=== PATIENT | female | born 1975 ===

== ENCOUNTER → 2021-12-23 15:35 | Outpatient (BNVA) | payer OTHER, SELFPAY | PROVIDERS: PCP Internal Medicine; Visit Provider Nurse Practitioner Family | DX: Z13.89 Encounter for screening for other disorder (principal) ==

== ENCOUNTER 2023-07-17 13:42 | Outpatient (AMB) | payer OTHER, SELFPAY ==
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
[2023-07-17 13:46] VITALS: BP 98/58; PULSE 68; RESP 16; O2SAT 96; BMI 22.3
== END 2023-07-17 14:16 | disposition home or self-care (01) ==
PROVIDERS: PCP Internal Medicine; Visit Provider Nurse Practitioner Family
DX: G43.709 Chronic migraine without aura, not intractable, without status migrainosus (principal); M54.2 Cervicalgia
CPT/HCPCS: 99213

== ENCOUNTER → 2023-07-17 13:42 | Outpatient (BNVA) | payer OTHER, SELFPAY | PROVIDERS: PCP Internal Medicine; Visit Provider Nurse Practitioner Family | DX: G43.709 Chronic migraine without aura, not intractable, without status migrainosus (principal); M54.2 Cervicalgia | CPT/HCPCS: 99212 ==

== ENCOUNTER 2023-08-13 09:53 | Outpatient (AMB) | payer OTHER, SELFPAY ==
--- NOTE | 2023-08-13 09:54 | MHC.OFFVIS ---
Intake Vital Signs 08/13/23 09:57 Weight 135 lb BP 118/80 Blood Pressure Location Lt brachial Position Sitting Pulse 82 Pulse Source Pulse Oximeter Pulse Oximetry (%) 98 Oxygen Delivery Method Room Air Intake Visit Reasons: Botox-Confirmed Allergies No Known Allergies Allergy (Verified 08/13/23 09:59) Medication List - Last Reconciled 08/13/23 by Jimena Rodriguez MD onabotulinumtoxinA (Botox) 200 units IM ONCE 90 days riboflavin (vitamin B2) 400 mg PO DAILY 30 days rizatriptan mg PO sumatriptan succinate 0 mg PO HPI HPI Comments History of Present Illness Details ? 47y/o female comes for treatment of migraines with botox. This is her first session she has 25-30 migraine days a month. ??? Most frequent reported adverse reactions following injection of botox for chronic migraine include neck pain (9%), headache(5%), eyelid ptosis(4%), migraine(4%), muscular weakness(4%), musculuskeletal stiffness(4%), bronchitis(3%), injection site pain (3%), musculoskeletal pain(3%), myalgia(3%), facial paresis(2%), HTN(2%) and muscle spasms(2%) were discussed in detail. ??? Botulinum toxin typeA 200units Lot no [id number] expiration November 2025 was diluted with 4 cc of normal saline . ??? Muscles injected- ??? Frontalis 4 sites ??? Procerus 1 site ??? Filling And Stapling Machine Operator- 2 sites ??? Temporalis- 8 sites ??? Occipitalis- 6 sites ??? Cervical paraspinals- 4 sites ??? Trapezius- 6 sites- 10 units each ??? 5 units each in 31 site ??? Total use- 185units ??? Discarded-15units [facility] Medical History Anemia Drug abuse Depression Anxiety Family History Father Diabetes PNA (pneumonia) Mother Diabetes Social History Household Members: None Alcohol intake: current Alcohol intake frequency: holidays/special occasions only Patient Tobacco Use Status: Current everyday Tobacco user Physical Exam Vital Signs: Last Vital Signs Pulse 82 08/13/23 09:57 BP 118/80 08/13/23 09:57 Pulse Ox 98 08/13/23 09:57 Oxygen Delivery Method Room Air 08/13/23 09:57 Const General: cooperative and tired appearing Nutritional Appearance: average body habitus Orientation/consciousness: patient oriented x3 Neck Neck: Yes full ROM and Yes supple Neuro General: patient oriented x3, gait normal and moves all extremities Cranial nerves: Yes CN's II-XII intact bilaterally Cognition (Neuro): normal cognition Gait exam (Neuro): Normal gait present Motor exam (neuro): 5/5 motor strength present throughout, Pronator motor function not present and no tremor noted Office Procedures Botulinum toxin Injection 64430 - Migraine Procedure code (CPT) selection complete Office Meds onabotulinumtoxinA 200 unit solution for injection Performing Provider: Jimena Rodriguez MD Performing Location: [facility] Administered by: Jimena Rodriguez MD on 08/13/23 11:21 Dose Route Admin Location Dispensed Lot Number Expiration Date [facility] [employer] Inspector 185 unit IM 200 units [id number] 11/01/25 1910-9982-55 ALLERGAN/BOTOX Comments: see HPI Assessment & Plan Assessment & Plan (1) Chronic migraine w/o aura w/o status migrainosus, not intractable: Code(s): G43.709 - Chronic migraine without aura, not intractable, without status migrainosus (2) Cervicalgia: Code(s): M54.2 - Cervicalgia Plan Patient tolerated the procedure well she will call with any side effects Orders: Orders AMB Botulinum toxin Injection Today G43.709 - Chronic migraine without aura, not intractable, without status migrainosus Coding Level of Care Code Est Pt Level 1 (57281) Diagnoses Chronic migraine w/o aura w/o status migrainosus, not intractable G43.709 Cervicalgia M54.2 CPT Codes Botox Injection - Botox 3: 54552 - Migraine ([id number])
[2023-08-13 09:57] VITALS: BP 118/80; PULSE 82; O2SAT 98
== END 2023-08-13 10:12 | disposition home or self-care (01) ==
PROVIDERS: PCP Internal Medicine; Visit Provider Psychiatry & Neurology Neurology
DX: G43.709 Chronic migraine without aura, not intractable, without status migrainosus (principal)
CPT/HCPCS: 64615

== ENCOUNTER → 2023-08-13 09:53 | Outpatient (BNVA) | payer OTHER, SELFPAY | PROVIDERS: PCP Internal Medicine; Visit Provider Psychiatry & Neurology Neurology | DX: G43.709 Chronic migraine without aura, not intractable, without status migrainosus (principal); M54.2 Cervicalgia | CPT/HCPCS: 64615; 99211; J0585 ==

== ENCOUNTER 2023-11-12 09:05 | Outpatient (AMB) | payer OTHER, SELFPAY ==
--- NOTE | 2023-11-12 09:07 | A.OFFVIS_ITS ---
Intake Vital Signs 11/12/23 09:09 Height 5 ft 5.5 in Weight 135 lb BMI 22.1 BP 102/60 Blood Pressure Location Lt brachial Position Sitting Respiration 16 Pulse 56 Pulse Source Pulse Oximeter Intake Visit Reasons: Botox-Conf Intake Note: Pt presents to the office for Botox injections. Allergies No Known Allergies Allergy (Verified 11/12/23 09:07) Medication List - Last Reconciled 11/12/23 by Jimena Rodriguez MD onabotulinumtoxinA (Botox) 200 units IM ONCE 90 days riboflavin (vitamin B2) 400 mg PO DAILY 30 days rizatriptan mg PO sumatriptan succinate 0 mg PO HPI HPI Comments History of Present Illness Details ? 47y/o female comes for treatment of migraines with botox. This is her second session. she had a good response after her first session . she had daily migraines 25-30/month and now she has 3/week and less intense and lasts less than 2 hrs . ??? Most frequent reported adverse reactions following injection of botox for chronic migraine include neck pain (9%), headache(5%), eyelid ptosis(4%), migraine(4%), muscular weakness(4%), musculuskeletal stiffness(4%), bronchitis(3%), injection site pain (3%), musculoskeletal pain(3%), myalgia(3%), facial paresis(2%), HTN(2%) and muscle spasms(2%) were discussed in detail. ??? Botulinum toxin typeA 200units Lot no [id number] expiration January 2026 was diluted with 4 cc of normal saline . ??? Muscles injected- ??? Frontalis 4 sites ??? Procerus 1 site ??? Automotive Parts Counter Associate- 2 sites ??? Temporalis- 8 sites ??? Occipitalis- 6 sites ??? Cervical paraspinals- 4 sites ??? Trapezius- 6 sites- 10 units each ??? 5 units each in 31 site ??? Total use- 185units ??? Discarded-15units [facility] Medical History Anemia Drug abuse Depression Anxiety Family History Father Diabetes PNA (pneumonia) Mother Diabetes Social History Household Members: None Alcohol intake: current Alcohol intake frequency: holidays/special occasions only Patient Tobacco Use Status: Current everyday Tobacco user Physical Exam Vital Signs: Last Vital Signs Pulse 56 11/12/23 09:09 Resp 16 11/12/23 09:09 BP 102/60 11/12/23 09:09 BMI result Body Mass Index 22.1 Const General: cooperative and tired appearing Nutritional Appearance: average body habitus Orientation/consciousness: patient oriented x3 Neck Neck: Yes full ROM and Yes supple Neuro General: patient oriented x3, gait normal and moves all extremities Cranial nerves: Yes CN's II-XII intact bilaterally Cognition (Neuro): normal cognition Gait exam (Neuro): Normal gait present Motor exam (neuro): 5/5 motor strength present throughout, Pronator motor function not present and no tremor noted Office Procedures Botulinum toxin Injection 56119 - Migraine Procedure code (CPT) selection complete Office Meds onabotulinumtoxinA 200 unit solution for injection Performing Provider: Jimena Rodriguez MD Performing Location: [facility] [place] [facility] Administered by: Jimena Rodriguez MD on 11/12/23 09:30 Dose Route Admin Location Dispensed Lot Number Expiration Date [facility] [employer] 185 unit IM 200 units [id number] 01/01/26 4474-2263-57 ALLERGAN/BOTOX Comments: see hpi Assessment & Plan Assessment & Plan (1) Chronic migraine w/o aura w/o status migrainosus, not intractable: Code(s): G43.709 - Chronic migraine without aura, not intractable, without status migrainosus (2) Cervicalgia: Code(s): M54.2 - Cervicalgia Plan Patient tolerated the procedure well she will call with any side effects Orders: Orders AMB Botulinum toxin Injection Today G43.709 - Chronic migraine without aura, not intractable, without status migrainosus Medications: New onabotulinumtoxinA 200 units IM ONCE 1 ea 0RF migraine G43.709 - Chronic migraine without aura, not intractable, without status migrainosus Coding Level of Care Code Est Pt Level 1 (94813) Diagnoses Chronic migraine w/o aura w/o status migrainosus, not intractable G43.709 Cervicalgia M54.2 CPT Codes Botox Injection - Botox 3: 21522 - Migraine ([id number])
[2023-11-12 09:09] VITALS: BP 102/60; PULSE 56; RESP 16; BMI 22.1
== END 2023-11-12 09:29 | disposition home or self-care (01) ==
PROVIDERS: PCP Internal Medicine; Visit Provider Psychiatry & Neurology Neurology
DX: G43.709 Chronic migraine without aura, not intractable, without status migrainosus (principal)
CPT/HCPCS: 64615

== ENCOUNTER → 2023-11-12 09:05 | Outpatient (BNVA) | payer OTHER, SELFPAY | PROVIDERS: PCP Internal Medicine; Visit Provider Psychiatry & Neurology Neurology | DX: G43.709 Chronic migraine without aura, not intractable, without status migrainosus (principal) | CPT/HCPCS: 64615; 99211; J0585 ==

== ENCOUNTER 2024-02-16 15:22 | Outpatient (AMB) | payer OTHER, SELFPAY ==
[2024-02-16 15:25] VITALS: BP 92/58; PULSE 68; RESP 16; O2SAT 98; BMI 22.5
--- NOTE | 2024-02-16 15:25 | MHC.OFFVIS ---
Vital Signs 02/16/24 15:25 Height 5 ft 5 in Weight 135 lb BMI 22.5 BP 92/58 L Blood Pressure Location Rt brachial Position Sitting Respiration 16 Pulse 68 Pulse Source Pulse Oximeter Pulse Oximetry (%) 98 Oxygen Delivery Method Room Air Intake Visit Reasons: BOTOX Intake Note: Pt presents to the office for Botox injections for cervicalgia. 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 47y/o female comes for treatment of migraines with botox. This is her second session. she had a good response after her first session . she had daily migraines 25-30/month and now she has 3/week and less intense and lasts less than 2 hrs . ??? Most frequent reported adverse reactions following injection of botox for chronic migraine include neck pain (9%), headache(5%), eyelid ptosis(4%), migraine(4%), muscular weakness(4%), musculuskeletal stiffness(4%), bronchitis(3%), injection site pain (3%), musculoskeletal pain(3%), myalgia(3%), facial paresis(2%), HTN(2%) and muscle spasms(2%) were discussed in detail. ??? Botulinum toxin typeA 200units Lot no [id number] expiration January 2026 was diluted with 4 cc of normal saline . ??? Muscles injected- ??? Frontalis 4 sites ??? Procerus 1 site ??? Oracle Adf Consultant- 2 sites ??? Temporalis- 8 sites ??? Occipitalis- 6 sites ??? Cervical paraspinals- 4 sites ??? Trapezius- 6 sites- 10 units each ??? 5 units each in 31 site ??? Total use- 185units ??? Discarded-15units [facility] Medical History (Updated 02/16/24 @ 15:47 by Jimena Rodriguez MD) Chronic migraine without aura, intractable, without status migrainosus Anemia Drug abuse Depression Anxiety Family History Father Diabetes PNA (pneumonia) Mother Diabetes Social History Household Members: None Alcohol intake: current Alcohol intake frequency: holidays/special occasions only Patient Tobacco Use Status: Current everyday Tobacco user Physical Exam Vital Signs: Last Vital Signs Pulse 68 02/16/24 15:25 Resp 16 02/16/24 15:25 BP 92/58 L 02/16/24 15:25 Pulse Ox 98 02/16/24 15:25 Oxygen Delivery Method Room Air 02/16/24 15:25 BMI result Body Mass Index 22.5 Const General: cooperative and tired appearing Nutritional Appearance: average body habitus Orientation/consciousness: patient oriented x3 Neck Neck: Yes full ROM and Yes supple Neuro General: patient oriented x3, gait normal and moves all extremities Cranial nerves: Yes CN's II-XII intact bilaterally Cognition (Neuro): normal cognition Gait exam (Neuro): Normal gait present Motor exam (neuro): 5/5 motor strength present throughout, Pronator motor function not present and no tremor noted Office Procedures Botulinum toxin Injection 79103 - Migraine Procedure code (CPT) selection complete Office Meds onabotulinumtoxinA 200 unit solution for injection Performing Provider: Jimena Rodriguez MD Performing Location: [facility] [place] [facility] Administered by: Jimena Rodriguez MD on 02/16/24 15:57 Dose Route Admin Location Dispensed Lot Number Expiration Date [facility] Auto Service Writer 185 unit subcut 200 units [id number] 01/01/26 0044-0017-49 ALLERGAN/BOTOX Comments: see HPI Assessment & Plan Assessment & Plan (1) Chronic migraine without aura, intractable, without status migrainosus: Code(s): G43.719 - Chronic migraine without aura, intractable, without status migrainosus Category: Medical Plan Patient tolerated the procedure well she will call with any side effects Orders: Orders AMB Botulinum toxin Injection Today G43.719 - Chronic migraine without aura, intractable, without status migrainosus Medications: New onabotulinumtoxinA 200 units subcut ONCE 1 ea 0RF migraine G43.719 - Chronic migraine without aura, intractable, without status migrainosus Coding Level of Care Code Est Pt Level 1 (09314) Diagnoses Chronic migraine without aura, intractable, without status migrainosus G43.719 CPT Codes Botox Injection - Botox 3: 63787 - Migraine ([id number])
== END 2024-02-16 15:43 | disposition home or self-care (01) ==
PROVIDERS: PCP Internal Medicine; Visit Provider Psychiatry & Neurology Neurology
DX: G43.719 Chronic migraine without aura, intractable, without status migrainosus (principal)
CPT/HCPCS: 64615

== ENCOUNTER → 2024-02-16 15:22 | Outpatient (BNVA) | payer OTHER, SELFPAY | PROVIDERS: PCP Internal Medicine; Visit Provider Psychiatry & Neurology Neurology | DX: G43.719 Chronic migraine without aura, intractable, without status migrainosus (principal) | CPT/HCPCS: 64615; 99211; J0585 ==

== ENCOUNTER 2024-04-05 13:18 | Outpatient (REF) | payer OTHER, SELFPAY ==
--- NOTE | ~2024-04-05 | XR_ITS ---
EXAMINATION: XR WRIST, RIGHT XR WRIST, LEFT CLINICAL INFORMATION: Right and left wrist pain. COMPARISON: None available. TECHNIQUE: AP, oblique, lateral, and scaphoid views of the right and left wrist. FINDINGS: Right Wrist: No acute fracture or dislocation. Borderline ulnar positive variance. No joint space narrowing or marginal osteophytes. No osseous erosion. No abnormal soft tissue calcification. Left Wrist: No acute fracture or dislocation. Borderline ulnar positive variance. No joint space narrowing or marginal osteophytes. No osseous erosion. No abnormal soft tissue calcification. XR/XR wrist LT w scaphoid IMPRESSION: RIGHT WRIST: Borderline ulnar positive variance. No acute osseous abnormality. LEFT WRIST: Borderline ulnar positive variance. No acute osseous abnormality. Electronically signed by: Khoa Guerin MD 04/11/2024 09:27 PM EDT
--- NOTE | ~2024-04-05 | XR_ITS ---
EXAMINATION: XR WRIST, RIGHT XR WRIST, LEFT CLINICAL INFORMATION: Right and left wrist pain. COMPARISON: None available. TECHNIQUE: AP, oblique, lateral, and scaphoid views of the right and left wrist. FINDINGS: Right Wrist: No acute fracture or dislocation. Borderline ulnar positive variance. No joint space narrowing or marginal osteophytes. No osseous erosion. No abnormal soft tissue calcification. Left Wrist: No acute fracture or dislocation. Borderline ulnar positive variance. No joint space narrowing or marginal osteophytes. No osseous erosion. No abnormal soft tissue calcification. XR/XR wrist RT min 3V IMPRESSION: RIGHT WRIST: Borderline ulnar positive variance. No acute osseous abnormality. LEFT WRIST: Borderline ulnar positive variance. No acute osseous abnormality. Electronically signed by: Khoa Guerin MD 04/11/2024 09:27 PM EDT
== END 2024-04-05 13:19 | disposition home or self-care (01) ==
LOC: HO.HOSX 13:18
PROVIDERS: PCP Internal Medicine; Visit Provider Orthopaedic Surgery
DX: M25.532 Pain in left wrist (principal); M25.531 Pain in right wrist; M25.641 Stiffness of right hand, not elsewhere classified; R20.0 Anesthesia of skin; R20.2 Paresthesia of skin
CPT/HCPCS: 73110; 99202

== ENCOUNTER 2024-04-05 14:15 | Outpatient (AMB) | payer OTHER, SELFPAY ==
--- NOTE | 2024-04-05 14:27 | MHC.OFFVIS ---
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 Patient reports numbness and tingling that occurs consonantly. Denies locking of finger. Patient states pain is achy, all the time. She is unsure of what mechanisms make the pain worse. Patient states she's had steroid injections, a few months ago, with minimal relief. Denies any prior injuries or surgeries to the left hand. 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 She reports being a patient of Dr. Ty and Dr. Perdomo at [facility]. She reports that she slipped and fell on some ice back in August of 2022 and has been a patient of theirs for her bilateral wrist pain. She reports that they were trying to order an MRI for 1 of her wrists, but the insurance company denied it and evidently she feels that they did not challenge it. In any case, her chief complaint is of right wrist pain. Mention was made of a TFCC tear. Did not see mention specifically of a TFCC tear in a referral, and had no MRI or MRI report to review. She complains of pain in bilateral wrists, R>L. Her primary complaint is of a constant ache in her right wrist. In questioning her further the chief complaint is actually over the 4th and 5th MCP joints extending proximally along the metacarpals and sometimes up the ulnar aspect of her forearm. She also complains of some radial sided wrist pain which extends from her thumb up the radial aspect of her forearm. She reports limited ROM of her wrist & fingers. She says she has completed OT hand therapy in the past. She also complains of constant numbness & tingling in her right hand that extends from the ulnar aspect of the 5th MCP joint up her ulnar forearm. She has Cervicalgia & complains of neck pain. She is on Methadone. [facility] Medical History (Updated 04/05/24 @ 15:16 by Edwin Astudillo) Chronic migraine without aura, intractable, without status migrainosus Anemia Drug abuse Depression Anxiety Family History Father Diabetes PNA (pneumonia) Mother Diabetes Social History (Updated 04/05/24 @ 14:47 by MATT Rodriguez) Household Members: None Alcohol intake: current Alcohol intake frequency: holidays/special occasions only Patient Tobacco Use Status: Current everyday Tobacco user Current occupational status: employed Current occupation: rt handed Review of Systems Const All systems reviewed & are unremarkable except as noted in HPI and below Physical Exam Vital Signs: BMI result Body Mass Index 22.5 Const General: cooperative, healthy appearing and no acute distress Orientation/consciousness: patient oriented x3 HEENT Head: Yes normocephalic and Yes atraumatic Eyes EOM: EOMs intact bilaterally Resp Effort & Inspection: normal respiratory effort and able to speak in complete sentences Cardio Jugular venous distension: no JVD Skin General skin exam: turgor normal Rashes: no rashes Neuro General: patient oriented x3 Extrem Other: Evaluation of Right Upper Extremity: The patient is, oriented, and in no acute distress. She did act somewhat sleepy or tired during our visit. Initially she was holding her right hand in a position of dysfunction where she would move the arm in space with very little motion at the wrist or any of the fingers. The fingers were held in a position of rest with MCP and PIP flexion. With encouragement I got her to actively extend all of her digits. She was then able to make a weak fist. No subluxation of the extensor tendons. No locking or catching. When I asked her to make an okay sign she would only flex at the MCP joints of the fingers and kept the PIP joints relatively straight, it said that that was all that she could do. Neuro: Median, Ulnar, Radial nerves motor and sensory grossly intact When I asked her about numbness and tingling, she demonstrated that she gets numbness along the ulnar aspect of her hand and forearm extending from the ulnar aspect of the 5th MCP joint proximally to the mid forearm. No intrinsic or thenar wasting. Cap refill brisk General: No swelling, no Ecchymosis. No Erythema or evidence of infection. She can weakly demonstrate wrist flexion extension and prono-supination with encouragement Not particularly tender over the distal radius DRUJ or distal ulna and the DRUJ was stable on exam. Radiographs: 3 views of the bilateral wrists were taken and reviewed by me today in clinic. They show no fractures or dislocations. Regarding the right wrist: No fractures, dislocations, or significant arthritic changes. Regarding the left wrist: No fractures, dislocations, or significant arthritic changes. Psych Appearance: grossly normal Affect: normal affect Attitude: cooperative Assessment & Plan Assessment & Plan (1) Stiffness of right hand joint: Code(s): M25.641 - Stiffness of right hand, not elsewhere classified Category: Medical (2) Stiffness of right wrist joint: Code(s): M25.631 - Stiffness of right wrist, not elsewhere classified Category: Medical (3) Right wrist pain: Code(s): M25.531 - Pain in right wrist Category: Medical (4) Numbness and tingling of right arm: Code(s): R20.0 - Anesthesia of skin; R20.2 - Paresthesia of skin Category: Medical Plan Assessment & Plan: 1. Right chronic hand and wrist pain This is her chief complaint today 2. right hand & wrist motion with significant encouragement I educated her about these conditions I discussed activity modification, she should work on normalizing her right hand range of motion, use her hand for more normal daily activities I ordered OT hand therapy to work on ROM & normalizing function. She can also work on strengthening and normalizing overall use. She will work on ROM exercises at home, 20x daily She will discontinue her wrist brace at this time She will follow up in 6-8 weeks for a ROM check & to see how she is doing I do not see a reason for wrist MRI at this time, but we will re-evaluate her. 3. Right ulnar-sided hand and arm numbness Extending from the ulnar-sided the 5th MCP joint up the ulnar side of the forearm Symptoms intermittent & worse with activities She is unsure if she gets any numbness in her fingers, but perhaps may have occasional numbness in the ulnar aspect of her hand She will pay attention to what goes numb when this occurs, to see if these include any of her fingers She has a Hx of Cervicalgia, which may be related. No available NCS for review I ordered a nerve conduction study. Scribed for Missy Sanchez MD by Edwin Astudillo, director of medical services, on 04/05/24 at 3:15 PM, EST. Orders: Orders XR wrist RT min 3V Today M25.531 - Pain in right wrist XR wrist LT w scaphoid Today M25.532 - Pain in left wrist NE nerve conduction velocity Today R20.0 - Anesthesia of skin, R20.2 - Paresthesia of skin OT Evaluation and Treatment Today M25.531 - Pain in right wrist, M25.631 - Stiffness of right wrist, not elsewhere classified Coding Level of Care Code New Pt Level 4 (06342) Diagnoses Stiffness of right hand joint M25.641 Stiffness of right wrist joint M25.631 Right wrist pain M25.531 Numbness and tingling of right arm R20.0; R20.2
[2024-04-05 14:44] VITALS: BMI 22.5
== END 2024-04-05 15:18 | disposition home or self-care (01) ==
LOC: HO.HOS 14:15
PROVIDERS: PCP Internal Medicine; Visit Provider Orthopaedic Surgery
DX: M25.641 Stiffness of right hand, not elsewhere classified (principal); M25.631 Stiffness of right wrist, not elsewhere classified; M25.531 Pain in right wrist; R20.0 Anesthesia of skin; R20.2 Paresthesia of skin
CPT/HCPCS: 99203

== ENCOUNTER 2024-05-17 09:41 | Outpatient (AMB) | payer OTHER, SELFPAY ==
--- NOTE | 2024-05-17 09:47 | MHC.OFFVIS ---
Vital Signs 05/17/24 09:51 Height 5 ft 5 in Weight 123 lb BMI 20.5 Intake Visit Reasons: Botox - LVM appt was moved to 9:30am Intake Note: Patient presents for botox Allergies No Known Allergies Allergy (Verified 05/17/24 09:52) Medication List - Last Reconciled 05/17/24 by Jimena Rodriguez MD methadone 25 mg PO BID onabotulinumtoxinA (Botox) 200 units IM ONCE 90 days rizatriptan mg PO sumatriptan succinate 0 mg PO HPI Comments Details: ? 48y/o female comes for treatment of migraines with botox. This is her second session. she had a good response after her first session . she had daily migraines 25-30/month and now she has 3/week and less intense and lasts less than 2 hrs .How long do the migraines last- 1-2 days Prebotox - Intensity of migraine- severe prior to botox ER visits related to migraine 1-2 pre botox Effectiveness of botox from last two treatment(s) How many migraine days since receiving treatment: Change? in intensity of migraine?less Change in frequency of migraine?decreased Change in use of acute medication for migraine?decreased Change in quality of life?improved ER visits related to migraine?0 Explanation for any gaps in treatment- Have at least three months elapsed since last treatment (Last botox date - frequency of injections) yes ??? Most frequent reported adverse reactions following injection of botox for chronic migraine include neck pain (9%), headache(5%), eyelid ptosis(4%), migraine(4%), muscular weakness(4%), musculuskeletal stiffness(4%), bronchitis(3%), injection site pain (3%), musculoskeletal pain(3%), myalgia(3%), facial paresis(2%), HTN(2%) and muscle spasms(2%) were discussed in detail. ??? Botulinum toxin typeA 200units Lot no [id number] expiration Jul 2026 was diluted with 4 cc of normal saline . ??? Muscles injected- ??? Frontalis 4 sites ??? Procerus 1 site ??? Financial Examiner- 2 sites ??? Temporalis- 8 sites ??? Occipitalis- 6 sites ??? Cervical paraspinals- 4 sites ??? Trapezius- 6 sites- 10 units each ??? 5 units each in 31 site ??? Total use- 185units ??? Discarded-15units [facility] Medical History Chronic migraine without aura, intractable, without status migrainosus Anemia Drug abuse Depression Anxiety Family History Father Diabetes PNA (pneumonia) Mother Diabetes Social History Household Members: None Alcohol intake: current Alcohol intake frequency: holidays/special occasions only Patient Tobacco Use Status: Current everyday Tobacco user Current occupational status: employed Current occupation: rt handed Physical Exam Vital Signs: BMI result Body Mass Index 20.5 Const General: cooperative and tired appearing Nutritional Appearance: average body habitus Orientation/consciousness: patient oriented x3 Neck Neck: Yes full ROM and Yes supple Neuro General: patient oriented x3, gait normal and moves all extremities Cranial nerves: Yes CN's II-XII intact bilaterally Cognition (Neuro): normal cognition Gait exam (Neuro): Normal gait present Motor exam (neuro): 5/5 motor strength present throughout, Pronator motor function not present and no tremor noted Office Procedures Botulinum toxin Injection 41643 - Migraine Procedure code (CPT) selection complete Office Meds onabotulinumtoxinA 200 unit solution for injection Performing Provider: Jimena Rodriguez MD Performing Location: [facility] [place] [facility] Administered by: Jimena Rodriguez MD on 05/17/24 13:39 Dose Route Admin Location Dispensed Lot Number Expiration Date [facility] [employer] 185 unit subcut 200 units [id number] 07/03/26 2477-5826-72 ALLERGAN/BOTOX Comments: see hpi Assessment & Plan Assessment & Plan (1) Chronic migraine without aura, intractable, without status migrainosus: Code(s): G43.719 - Chronic migraine without aura, intractable, without status migrainosus Category: Medical Plan Patient tolerated the procedure well she will call with any side effects Orders: Orders AMB Botulinum toxin Injection Today G43.719 - Chronic migraine without aura, intractable, without status migrainosus Medications: New onabotulinumtoxinA 200 units subcut ONCE 1 ea 0RF migraine G43.719 - Chronic migraine without aura, intractable, without status migrainosus Coding Level of Care Code Est Pt Level 1 (70154) Diagnoses Chronic migraine without aura, intractable, without status migrainosus G43.719 CPT Codes Botox Injection - Botox 3: 49010 - Migraine ([id number])
[2024-05-17 09:51] VITALS: BMI 20.5
== END 2024-05-17 10:08 | disposition home or self-care (01) ==
PROVIDERS: PCP Internal Medicine; Visit Provider Psychiatry & Neurology Neurology
DX: G43.719 Chronic migraine without aura, intractable, without status migrainosus (principal)
CPT/HCPCS: 64615

== ENCOUNTER → 2024-05-17 09:41 | Outpatient (BNVA) | payer OTHER, SELFPAY | PROVIDERS: PCP Internal Medicine; Visit Provider Psychiatry & Neurology Neurology | DX: G43.719 Chronic migraine without aura, intractable, without status migrainosus (principal) | CPT/HCPCS: 64615; 99211; J0585 ==

== ENCOUNTER 2024-06-29 13:33 | Outpatient (REF) | payer OTHER, SELFPAY ==
--- NOTE | 2024-06-29 13:36 | EMG_ITS ---
Chief complaint: s/p triangular fibrocartilage complex (TFCC) tear, DOI August,, continued right wrist pain with pain and numbness in right thumb and 5th digit, unable to flex wrist Reason for referral: Evaluate for ulnar neuropathy Referred by: Dr. Sanchez Procedure done: Right upper extremity NCS/EMG Precautions and/or limitations: None The limb temperature was monitored continuously and remained between 32-36 degrees C during the performance of the NCS. Nerve Conduction Studies Anti Sensory Summary Table ?Stim Site NR Onset (ms) Norm Onset (ms) Peak (ms) Norm Peak (ms) O-P Amp (?V) Norm O-P Amp Site1 Site2 Delta-0 (ms) Dist (cm) Erick (m/s) Norm Erick (m/s) Right Median Anti Sensory (2nd Digit) Wrist ? 2.3 3.0 <3.6 34.6 >10 Wrist 2nd Digit 2.3 14.0 61 Right Ulnar Anti Sensory (5th Digit) Wrist ? 2.1 3.1 <3.7 25.3 >15.0 Wrist 5th Digit 2.1 14.0 67 Motor Summary Table ?Stim Site NR Onset (ms) Norm Onset (ms) O-P Amp (mV) Norm O-P Amp iAmp (mV) Amp (1st) (%) Site1 Site2 Delta-0 (ms) Dist (cm) Erick (m/s) Norm Erick (m/s) Right Median Motor (Abd Poll Brev) Wrist ? 3.2 <3.9 3.3 >4.5 4.1 100.0 Elbow Wrist 3.9 20.0 51 >45 Elbow ? 7.1 4.4 5.5 133.3 Right Median Motor Run #2 (Abd Poll Brev) Wrist ? 3.2 <3.9 4.3 >4.5 5.2 100.0 Elbow Wrist 4.1 22.0 54 >45 Elbow ? 7.3 3.9 5.0 90.7 Right Ulnar Motor (Abd Dig Minimi) Wrist ? 2.9 <3.0 6.5 >5 7.4 100.0 B Elbow Wrist 3.4 19.0 56 >45 B Elbow ? 6.3 6.2 7.3 95.4 A Elbow B Elbow 1.6 10.0 62 >45 A Elbow ? 7.9 6.2 7.4 95.4 Comparison Summary Table ?Stim Site NR Peak (ms) Norm Peak (ms) P-T Amp (?V) Site1 Site2 Delta-P (ms) Norm Delta (ms) Right Median/Radial Dig I Comparison (Digit 1 - 10cm) Median ? 2.5 <2.9 23.5 Median Radial -0.1 Radial ? 2.6 <2.8 16.0 EMG ?Side Muscle Nerve Root Ins Act Fibs Psw Amp Dur Poly Recrt Int Pat Comment Right 1stDorInt Ulnar C8-T1 Nml Nml Nml Nml Nml 0 Nml Complete Right FlexCarRad Median C6-7 Nml Nml Nml Nml Nml 0 Nml Complete Right Biceps Musculocut C5-6 Nml Nml Nml Nml Nml 0 Nml Complete Right Triceps Radial C6-7-8 Nml Nml Nml Nml Nml 0 Nml Complete Right Deltoid Axillary C5-6 Nml Nml Nml Nml Nml 0 Nml Complete FINDINGS: Right median motor nerve showed normal distal latency, small amplitude and normal conduction velocity. All other nerves tested were within normal. Concentric needle EMG was performed in selected muscles of the right upper extremity. Study did not reveal signs of electric abnormalities as shown in the table above. IMPRESSION: 1. Small distal amplitude on right median motor nerve, of unknown clinical significance. 2. No clear electrodiagnostic evidence for proximal or distal median neuropathy, with normal median sensory. 3. There is no electrodiagnostic evidence for ulnar neuropathy, brachial plexopathy, for cervical radiculopathy. Thank you for your kind referral. Tessa Askew MD, DARRELL Board Certified, [place] Board [employer] and Rehabilitation (ABPMR) Board Certified, [place] Board of Electrodiagnostic Medicine (ABEM) CODIN [id number] [facility]
== END 2024-06-29 13:34 | disposition home or self-care (01) ==
LOC: HO.NEURO 13:33
PROVIDERS: PCP Internal Medicine; Visit Provider Orthopaedic Surgery
DX: R20.0 Anesthesia of skin (principal); R20.2 Paresthesia of skin
CPT/HCPCS: 95886; 95909

== ENCOUNTER → 2024-06-29 13:36 | Outpatient (BNV) | payer OTHER, SELFPAY | PROVIDERS: PCP Internal Medicine; Visit Provider Physical Medicine & Rehabilitation | DX: R20.0 Anesthesia of skin (principal); R20.2 Paresthesia of skin | CPT/HCPCS: 95886; 95909 ==

== ENCOUNTER 2024-08-25 11:32 | Outpatient (AMB) | payer OTHER, SELFPAY ==
--- NOTE | 2024-08-25 11:34 | MHC.OFFVIS ---
Intake Visit Reasons: BOTOX Intake Note: Patient presents for botox Allergies No Known Allergies Allergy (Verified 05/17/24 09:52) HPI Comments Details: ? 48y/o female comes for treatment of migraines with botox. This is her second session. she had a good response after her first session . she had daily migraines 25-30/month and now she has 3/week and less intense and lasts less than 2 hrs .How long do the migraines last- 1-2 days Prebotox - Intensity of migraine- severe prior to botox ER visits related to migraine 1-2 pre botox Effectiveness of botox from last two treatment(s) How many migraine days since receiving treatment: Change? in intensity of migraine?less Change in frequency of migraine?decreased Change in use of acute medication for migraine?decreased Change in quality of life?improved ER visits related to migraine?0 Explanation for any gaps in treatment- Have at least three months elapsed since last treatment (Last botox date - frequency of injections) yes ??? Most frequent reported adverse reactions following injection of botox for chronic migraine include neck pain (9%), headache(5%), eyelid ptosis(4%), migraine(4%), muscular weakness(4%), musculuskeletal stiffness(4%), bronchitis(3%), injection site pain (3%), musculoskeletal pain(3%), myalgia(3%), facial paresis(2%), HTN(2%) and muscle spasms(2%) were discussed in detail. ??? Botulinum toxin typeA 200units Lot no [id number] expiration Jul 2026 was diluted with 4 cc of normal saline . ??? Muscles injected- ??? Frontalis 4 sites ??? Procerus 1 site ??? Roving Changer- 2 sites ??? Temporalis- 8 sites ??? Occipitalis- 6 sites ??? Cervical paraspinals- 4 sites ??? Trapezius- 6 sites- 10 units each ??? 5 units each in 31 site ??? Total use- 185units ??? Discarded-15units [facility] Medical History Chronic migraine without aura, intractable, without status migrainosus Anemia Drug abuse Depression Anxiety Family History Father Diabetes PNA (pneumonia) Mother Diabetes Social History Household Members: None Alcohol intake: current Alcohol intake frequency: holidays/special occasions only Patient Tobacco Use Status: Current everyday Tobacco user Current occupational status: employed Current occupation: rt handed Physical Exam Const General: cooperative and tired appearing Nutritional Appearance: average body habitus Orientation/consciousness: patient oriented x3 Neck Neck: Yes full ROM and Yes supple Neuro General: patient oriented x3, gait normal and moves all extremities Cranial nerves: Yes CN's II-XII intact bilaterally Cognition (Neuro): normal cognition Gait exam (Neuro): Normal gait present Motor exam (neuro): 5/5 motor strength present throughout, Pronator motor function not present and no tremor noted Office Procedures Botulinum toxin Injection 08333 - Migraine Procedure code (CPT) selection complete Office Meds onabotulinumtoxinA 200 unit solution for injection Performing Provider: Jimena Rodriguez MD Performing Location: [facility] [place] [facility] Administered by: Jimena Rodriguez MD on 08/31/24 09:53 Dose Route Admin Location Dispensed Lot Number Expiration Date [facility] [employer] 185 unit IM 200 units [id number] ALLERGAN/BOTOX Comments: see hpi Assessment & Plan Assessment & Plan (1) Chronic migraine without aura, intractable, without status migrainosus: Code(s): G43.719 - Chronic migraine without aura, intractable, without status migrainosus Category: Medical Plan Patient tolerated the procedure well she will call with any side effects Orders: Orders AMB Botulinum toxin Injection 08/25/24 G43.719 - Chronic migraine without aura, intractable, without status migrainosus Medications: New onabotulinumtoxinA 200 units IM ONCE 1 ea 0RF migraine G43.719 - Chronic migraine without aura, intractable, without status migrainosus Coding Level of Care Code Est Pt Level 1 (35204) Diagnoses Chronic migraine without aura, intractable, without status migrainosus G43.719 CPT Codes Botox Injection - Botox 3: 83595 - Migraine ([id number])
--- OUTSIDE RECORDS SUMMARY | 2024-08-25 13:59 | XMS_ITS | Clinical Summary ---
Author Organization [address] [place] [address] [address] [place] [address] Phone Care Team Providers Care Supervisor [employer] Name Role Phone Malick Roca DO Primary Care Provider [phone] Allergies Active Allergy Reactions Criticality Noted Date Comments [place] Oil Anaphylaxis High 05/10/2013 Medications Medication Sig Dispensed Refills Start Date End Date Status methadone (DOLOPHINE) 10 mg/5 mL solution Take 50 mL by mouth every 12 hours. Active rizatriptan (MAXALT) 10 mg tablet as needed. 05/25/2023 Active sertraline (ZOLOFT) 25 mg tablet Take 1 Tablet by mouth daily. Active SUMAtriptan (IMITREX) 100 mg tablet as needed. 05/25/2023 Active Active Problems Problem Noted Date Diagnosed Date Anxiety 05/13/2013 Narcotic addiction 05/13/2013 Surgical History Surgery Date Site/Laterality Comments OTHER SURGICAL HISTORY PROCEDURE: ---- OTHER ----; COMMENT: breast implants Family History Relation Name Status Comments Father Alive Mother Alive Paternal Grandfather Alive cad Social History Tobacco Use Types Packs/Day Years Used Date Smoking Tobacco: Every Day Smokeless Tobacco: Never Alcohol Use Standard Drinks/Week Comments No 0 (1 standard drink = 0.6 oz pur e alcohol) Sex and Gender Information Value Date Recorded Sex Assigned at Not on file Gender Identity Not on file Sexual Orientation Not on file Obstetrics History Plan of Treatment Health Maintenance Due Date Last Done Comments Breast Cancer Screening 1975 Pneumococcal Vaccine: Pediat rics (0 to 5 Years) and At-Risk Patients (6 to 64 Years) (1 of 2 - PCV) 11/30/1981 DTaP,Tdap,and Td Vaccines (1 - Tdap) 11/30/1994 Hepatitis B Vaccines (1 of 3 - 19+ 3-dose series) 11/30/1994 Cervical Cancer Screening: P ap Smear 11/30/1996 Colorectal Cancer Screening: Colonoscopy 07/06/2022 Depression Screening 07/06/2022 HIV Screening 07/06/2022 Hepatitis C Screening 07/06/2022 Social Influencers of Health Screening 07/06/2022 COVID-19 Vaccine (1 - 2023-2 5 season) 2024 Influenza Vaccine (#1) 2024 HIB Vaccines Aged Out No longer eligi ble based on patient's age to complete this topic HPV Vaccines Aged Out No longer eligi ble based on patient's age to complete this topic Hepatitis A Vaccines Aged Out No long er eligible based on patient's age to complete this topic IPV Vaccines Aged Out No longer eligi ble based on patient's age to complete this topic MMR Vaccines Aged Out No longer eligi ble based on patient's age to complete this topic Meningococcal ACWY Vaccine Aged Out N o longer eligible based on patient's age to complete this topic RSV Immunization Patients Un shilpa 20 months Aged Out No longer eligible b ased on patient's age to complete this topic Varicella Vaccines Aged Out No longer eligible based on patient's age to complete this topic Care Teams Supervisor [employer] Relationship Specialty Start Date End Date Malick Roca DO [address] [place] [address] PCP - General 07/03/23
== END 2024-08-25 11:53 | disposition home or self-care (01) ==
PROVIDERS: PCP Internal Medicine; Visit Provider Psychiatry & Neurology Neurology
DX: G43.719 Chronic migraine without aura, intractable, without status migrainosus (principal)
CPT/HCPCS: 64615

== ENCOUNTER → 2024-08-25 11:32 | Outpatient (BNVA) | payer OTHER, SELFPAY | PROVIDERS: PCP Internal Medicine; Visit Provider Psychiatry & Neurology Neurology | DX: G43.719 Chronic migraine without aura, intractable, without status migrainosus (principal) | CPT/HCPCS: 64615; 99211; J0585 ==

== ENCOUNTER 2024-09-23 13:23 | Outpatient (AMB) | payer OTHER, SELFPAY ==
--- NOTE | 2024-09-23 13:32 | A.OFFVIS_ITS ---
Vital Signs 09/23/24 13:35 Height 5 ft 5 in Weight 123 lb BMI 20.5 Intake Visit Reasons: OV- R UE EMG review Intake Note: Hayley is a 48 year old female who presents today for an EMG review of right UE. Patient reports on 09/16/24 she had fallen on ice at home causing her to injure her right wrist and left elbow. States her symptoms have gotten worse and has difficulty sleeping at night. Allergies No Known Allergies Allergy (Verified 09/23/24 13:38) HPI HPI OV- R UE EMG review: Details: Hayley is a 48 year old right hand dominant woman who returns for a NCS review of her RUE numbness. She complains of a new fall onto her right wrist after slipping on ice, DOI: 09/17/24. Her primary complaint is of constant pain in her right hand wrist and forearm. In questioning her Today she demonstrates that the pain runs up her 4th met acarpal across her wrist and then up the dorsal aspect of her forearm. She also complains of some pain along the ulnar aspect of the thumb around the 1st webspace and up the radial aspect of the index finger. She says she has completed OT hand therapy in the past, ordered by [facility]. She has not done her new course of OT hand therapy She also complains of constant numbness & tingling in her right hand that extends from the ulnar aspect of the 5th MCP joint up her ulnar forearm. She complains of cervicalgia and migraines, causing her constant pain & sleepiness. She has CPS. *Please see my note from 04/06/24 for more information* [facility] Medical History Chronic migraine without aura, intractable, without status migrainosus Anemia Drug abuse Depression Anxiety Family History Father Diabetes PNA (pneumonia) Mother Diabetes Social History Household Members: None Alcohol intake: current Alcohol intake frequency: holidays/special occasions only Patient Tobacco Use Status: Current everyday Tobacco user Current occupational status: employed Current occupation: rt handed Review of Systems Const All systems reviewed & are unremarkable except as noted in HPI and below Physical Exam Vital Signs: BMI result Body Mass Index 20.5 Const General: no acute distress and alert Orientation/consciousness: patient oriented x3 Neuro General: patient oriented x3 Extrem Other: Evaluation of Upper Extremity: The patient is alert, oriented, and in no acute distress Neuro: Median, Ulnar, Radial nerves motor and sensory grossly intact When I asked her about numbness and tingling, she demonstrated that she gets numbness along the ulnar aspect of her hand and forearm extending from the ulnar aspect of the 5th MCP joint proximally to the mid forearm. No intrinsic or thenar wasting. Vascular: Cap refill brisk ROM: With encouragement I got her to actively extend all of her digits. She was then able to make a weak fist. No subluxation of the extensor tendons. No locking or catching. With encouragement she could pronate her wrist to ~40 degrees, and supinate to ~65 degrees, limited by pain She demonstrates pain extending from the dorsal aspect of her 4th metacarpal, over the dorsal aspect of her wrist & forearm. She also demonstrates pain around the ulnar aspect of her thumb, around the 1st webspace and extending to the radial aspect of the index finger. She complains of pain with general use of her hand Not particularly tender over the distal radius DRUJ or distal ulna and the DRUJ was stable on exam. Not particularly tender over any of the metacarpals. Good active flexion and extension of all digits with no locking or catching. Smooth wrist range of motion No pain referred proximally with resisted finger or wrist extension. Not particularly tender over the extensor origin just distal to the lateral condyle She firmly squeezed over the mobile wad of wrist extensors and brachioradialis and says that it bothers her to squeeze there. No swelling or erythema Nerve Conduction Study: Right-side only IMPRESSION: 1. Small distal amplitude on right median motor nerve, of unknown clinical significance. 2. No clear electrodiagnostic evidence for proximal or distal median neuropathy, with normal median sensory. 3. There is no electrodiagnostic evidence for ulnar neuropathy, brachial plexopathy, for cervical radiculopathy. Tessa Askew MD, DARRELL 06/29/24 Radiographs: 3 views of the right wrist were taken and viewed by me today in clinic. They show no fractures or dislocations Psych Appearance: grossly normal Affect: normal affect Attitude: cooperative Assessment & Plan Assessment & Plan (1) Stiffness of right hand joint: Code(s): M25.641 - Stiffness of right hand, not elsewhere classified Category: Medical (2) Stiffness of right wrist joint: Code(s): M25.631 - Stiffness of right wrist, not elsewhere classified Category: Medical (3) Right wrist pain: Code(s): M25.531 - Pain in right wrist Category: Medical (4) Numbness and tingling of right arm: Code(s): R20.0 - Anesthesia of skin; R20.2 - Paresthesia of skin Category: Medical Plan Assessment & Plan: 1. Right chronic hand, wrist and forearm pain This is her chief complaint today Exacerbated by new fall, DOI: 09/17/24 2. Right hand & wrist motion improved today I educated her about these conditions I discussed activity modification, she should work on normalizing her right hand range of motion, use her hand for more normal daily activities I ordered OT hand therapy to work on ROM & normalizing function. She can also work on strengthening and normalizing overall use. She will work on ROM exercises at home, 20x daily She will follow up in 6-8 weeks for a ROM check & to see how she is doing I do not see a reason for wrist MRI at this time, but we will re-evaluate her. 3. Right ulnar-sided hand and arm numbness Extending from the ulnar-sided the 5th MCP joint up the ulnar side of the forearm Symptoms intermittent & worse with activities NCS from 06/29/24 was unremarkable She is unsure if she gets any numbness in her fingers, but perhaps may have occasional numbness in the ulnar aspect of her hand She will pay attention to what goes numb when this occurs, to see if these include any of her fingers She has a Hx of Cervicalgia, which may be related. Scribed for Missy Sanchez MD by Edwin Astudillo, clinical specialist medical device, on 09/23/24 at 2:00 PM, EST. Orders: Orders XR wrist RT min 3V Today M25.531 - Pain in right wrist OT Evaluation and Treatment Today M25.531 - Pain in right wrist, M25.631 - Stiffness of right wrist, not elsewhere classified, R20.0 - Anesthesia of skin, R20.2 - Paresthesia of skin Scribe Plan - Not visible on output: Scribed for Imssy Sanchez, MD by Edwin Astudillo, clinical specialist medical device, on [ ] at [ ], EST. Coding Level of Care Code Est Pt Level 4 (25932) Diagnoses Stiffness of right hand joint M25.641 Stiffness of right wrist joint M25.631 Right wrist pain M25.531 Numbness and tingling of right arm R20.0; R20.2
[2024-09-23 13:35] VITALS: BMI 20.5
--- OUTSIDE RECORDS SUMMARY | 2024-09-23 13:47 | XMS_ITS | Clinical Summary ---
Author Organization 175 [facility] Address [address] [place] [address] Phone Care Team Providers Care Metal Miner Blasting Name Role Phone Malick Roca DO Primary Care Provider [phone] Allergies Active Allergy Reactions Criticality Noted Date Comments Chaffee Oil Anaphylaxis High 05/10/2013 Medications methadone (DOLOPHINE) 10 mg/5 mL solution Take 50 mL by mouth every 12 hours. Active rizatriptan (MAXALT) 10 mg tablet as needed. 05/25/2023 Active sertraline (ZOLOFT) 25 mg tablet Take 1 Tablet by mouth daily. Active SUMAtriptan (IMITREX) 100 mg tablet as needed. 05/25/2023 Active Active Problems Problem Noted Date Diagnosed Date Anxiety 05/13/2013 Narcotic addiction 05/13/2013 Encounters Date Type Department Care Team Description 09/08/2024 Lab Requisition [facility] - Main Lab 299 [facility] [place] [address] Jacky Voss Pain in throat from Last 3 Months Surgical History Surgery Date Site/Laterality Comments OTHER SURGICAL HISTORY PROCEDURE: ---- OTHER ----; COMMENT: breast implants Family History Relation Name Status Comments Father Alive Mother Alive Paternal Grandfather Alive cad Social History Tobacco Use Types Packs/Day Years Used Date Smoking Tobacco: Every Day Smokeless Tobacco: Never Alcohol Use Standard Drinks/Week Comments No 0 (1 standard drink = 0.6 oz pur e alcohol) Comments Unknown Sex and Gender Information Value Date Recorded Sex Assigned at Not on file Legal Sex Female 9:02 AM EST Gender Identity Not on file Sexual Orientation Not on file Obstetrics History Plan of Treatment Health Maintenance Due Date Last Done Comments Breast Cancer Screening 1975 Pneumococcal Vaccine: Pediat rics (0 to 5 Years) and At-Risk Patients (6 to 64 Years) (1 of 2 - PCV) 11/30/1994 Cervical Cancer Screening: P ap Smear 11/30/1996 DTaP,Tdap,and Td Vaccines (2 - Td or Tdap) 02/04/2017 02/04/2007 Hepatitis B Vaccines (2 of 3 - 19+ 3-dose series) 02/04/2022 01/07/2022 Colorectal Cancer Screening: Colonoscopy 07/06/2022 Depression Screening 07/06/2022 HIV Screening 07/06/2022 Hepatitis C Screening 07/06/2022 Social Influencers of Health Screening 07/06/2022 COVID-19 Vaccine (2023-2 5 season) 2024 Influenza Vaccine (#1) 2024 Cholesterol Screening (Lipid Panel) 09/08/2029 09/08/2024 HIB Vaccines Aged Out No longer eligi [...] patient's age to complete this topic Meningococcal B Vacine Aged Out No lo nger eligible based on patient's age to complete this topic RSV Immunization Patients Un shilpa 20 months Aged Out No longer eligible b ased on patient's age to complete this topic Varicella Vaccines Aged Out No longer eligible based on patient's age to complete this topic Procedures Procedure Name Priority Date/Time Associated Diagnosis Comments CBC WITH AUTO DIFFERENTIAL Routine 09/08/2024 3:32 PM EST Laboratory tests ordered as part of a complete physical exam (CPE) Iron deficiency Anemia IRON Routine 09/08/2024 3:32 PM EST Laboratory tests ordered as part of a complete physical exam (CPE) Iron deficiency Anemia FERRITIN Routine 09/08/2024 3:32 PM EST Laboratory tests ordered as part of a complete physical exam (CPE) Iron deficiency Anemia HEMOGLOBIN A1C Routine 09/08/2024 3:32 PM EST Laboratory tests ordered as part of a complete physical exam (CPE) Iron deficiency Anemia COMPREHENSIVE METABOLIC PANEL Routine 09/08/2024 3:32 PM EST Laboratory tests ordered as part of a complete physical exam (CPE) Iron deficiency Anemia CBC AND DIFFERENTIAL Routine 09/08/2024 3:32 PM EST Laboratory tests ordered as part of a complete physical exam (CPE) Iron deficiency Anemia THYROID STIMULATING HORMONE Routine 09/08/2024 3:32 PM EST Laboratory tests ordered as part of a complete physical exam (CPE) Iron deficiency Anemia LIPID PANEL WITH REFLEX TO DIRECT LDL Routine 09/08/2024 3:32 PM EST Laboratory tests ordered as part of a complete physical exam (CPE) Iron deficiency Anemia CULTURE THROAT Routine 09/08/2024 12:00 AM EST Pain in throat from Last 3 Months Results * (ABNORMAL) Lipid panel with reflex to direct LDL (09/08/2024 3:32 PM EST) Cholesterol 179 0 - 200 mg/dL LAB CHEMISTRY METHOD 09/08/2024 7:47 PM [facility] Triglycerides 58 0 - 150 mg/dL LAB CHEMISTRY METHOD 09/08/2024 7:47 PM [facility] HDL 65 >=40 mg/dL LAB CHEMISTRY METHOD 09/08/2024 7:47 PM [facility] LDL Calculated 102(H) 0 - 100 mg/dL LAB CHEMISTRY METHOD 09/08/2024 7:47 PM [facility] VLDL Cholesterol Riky 11.6 mg/dL LAB CHEMISTRY METHOD 09/08/2024 7:47 PM EST [facility] Non HDL Chol. (LDL+VLDL) 114 <145 mg/dL LAB CHEMISTRY METHOD 09/08/2024 7:47 PM [facility] Chol/HDL Ratio 2.8 0.0 - 4.4 LAB CHEMISTRY METHOD 09/08/2024 7:47 PM [facility] Blood Venous blood specimen / Unknown Venipuncture / Unknown 09/08/2024 3:32 PM EST 09/08/2024 3:32 PM EST us Jacky Voss LAB BLOOD ORDERABLES Final Resul t [facility] [address] [place] [address], [place] [phone] * (ABNORMAL) CBC auto differential (09/08/2024 3:32 PM EST) WBC 3.3(L) 4.8 - 10.8 K/mcL LAB HEMETOLOGY METHOD 09/08/2024 7:26 PM [facility] RBC 4.40 3.80 - 4.80 M/mcL LAB HEMETOLOGY METHOD 09/08/2024 7:26 PM [facility] Hemoglobin 12.9 11.5 - 16.0 g/dL LAB HEMETOLOGY METHOD 09/08/2024 7:26 PM [facility] Hematocrit 39.8 35.0 - 47.0 % LAB HEMETOLOGY METHOD 09/08/2024 7:26 PM [facility] MCV 89.8 79.0 - 98.0 FL LAB HEMETOLOGY METHOD 09/08/2024 7:26 PM [facility] MCH 29.1 27.0 - 32.0 pcg LAB HEMETOLOGY METHOD 09/08/2024 7:26 PM [facility] MCHC 32.4 32.0 - 37.0 g/dL LAB HEMETOLOGY METHOD 09/08/2024 7:26 PM [facility] RDW 14.3 11.0 - 15.0 % LAB HEMETOLOGY METHOD 09/08/2024 7:26 PM [facility] Platelets 159 130 - 400 K/mcL LAB HEMETOLOGY METHOD 09/08/2024 7:26 PM [facility] MPV 10.7 7.0 - 11.0 FL LAB HEMETOLOGY METHOD 09/08/2024 7:26 PM [facility] NRBC 0.0 <1.0 % LAB HEMETOLOGY METHOD 09/08/2024 7:26 PM [facility] NRBC Absolute 0.00 <0.10 K/mcL LAB HEMETOLOGY METHOD 09/08/2024 7:26 PM [facility] Neutrophils Relative 38.6 % LAB HEMETOLOGY METHOD 09/08/2024 7:26 PM [facility] Lymphocytes Relative 43.7 % LAB HEMETOLOGY METHOD 09/08/2024 7:26 PM [facility] Monocytes Relative 14.7 % LAB HEMETOLOGY METHOD 09/08/2024 7:26 PM [facility] Eosinophils Relative 2.1 % LAB HEMETOLOGY METHOD 09/08/2024 7:26 PM [facility] Basophils Relative 0.6 % LAB HEMETOLOGY METHOD 09/08/2024 7:26 PM [facility] Immature Granulocytes Relative 0.3 % LAB HEMETOLOGY METHOD 09/08/2024 7:26 PM [facility] Neutrophils Absolute 1.29(L) 1.50 - 7.00 K/mcL LAB HEMETOLOGY METHOD 09/08/2024 7:26 PM [facility] Lymphocytes Absolute 1.46 1.00 - 5.00 K/mcL LAB HEMETOLOGY METHOD 09/08/2024 7:26 PM EST [facility] Monocytes Absolute 0.49 0.20 - 1.00 K/[facility] LAB HEMETOLOGY METHOD 09/08/2024 7:26 PM EST [facility] LAB Eosinophils Absolute 0.07 0.00 - 0.50 K/[facility] LAB HEMETOLOGY METHOD 09/08/2024 7:26 PM EST [facility] Basophils Absolute 0.02 0.00 - 0.20 K/[facility] LAB HEMETOLOGY METHOD 09/08/2024 7:26 PM EST [facility] LAB Immature Granulocytes Absolute 0.01 0.00 - 0.03 K/[facility] LAB HEMETOLOGY METHOD 09/08/2024 7:26 PM EST [facility] Blood Venous blood specimen / Unknown Venipuncture / Unknown 09/08/2024 3:32 PM EST 09/08/2024 3:32 PM EST [employer] LAB BLOOD ORDERABLES Final Resul t Performing Organization Address City/[facility]/ZIP Co de Phone Number [facility] [address] [place] [address], [place] [phone] * Thyroid stimulating hormone (09/08/2024 3:32 PM EST) TSH 0.99 0.40 - 4.00 mcIU/mL LAB CHEMISTRY METHOD 09/08/2024 7:55 PM EST [facility] LAB Blood Venous blood specimen / Unknown Venipuncture / Unknown 09/08/2024 3:32 PM EST 09/08/2024 3:32 PM EST [employer] LAB BLOOD ORDERABLES Final Resul t [facility] [address] [place] [address], [place] [phone] * (ABNORMAL) Iron (09/08/2024 3:32 PM EST) Iron 24(L) 40 - 150 mcg/dL LAB CHEMISTRY METHOD 09/08/2024 7:47 PM EST [facility] Blood Venous blood specimen / Unknown Venipuncture / Unknown 09/08/2024 3:32 PM EST 09/08/2024 3:32 PM EST [employer] LAB BLOOD ORDERABLES Final Resul t [facility] [address] [place] [address], [place] [phone] * Hemoglobin A1c (09/08/2024 3:32 PM EST) [facility] Hemoglobin A1C 5.6 <6.5 % LAB CHEMISTRY METHOD 09/08/2024 8:14 PM EST [facility] Mean Bld Glu Estim. 114 mg/dL LAB CHEMISTRY METHOD 09/08/2024 8:14 PM EST [facility] Blood Venous blood specimen / Unknown Venipuncture / Unknown 09/08/2024 3:32 PM EST 09/08/2024 3:32 PM EST Jacky [employer] LAB BLOOD ORDERABLES Final Resul t Performing Organization Address City/[facility]/ZIP Co de Phone Number [facility] [address] [place] [address], [place] [phone] * Ferritin (09/08/2024 3:32 PM EST) Pathologist [facility] Ferritin 32 8 - 252 ng/mL LAB CHEMISTRY METHOD 09/08/2024 7:47 PM EST [facility] Blood Venous blood specimen / Unknown Venipuncture / Unknown 09/08/2024 3:32 PM EST 09/08/2024 3:32 PM EST Jacky Voss LAB BLOOD ORDERABLES Final Resul t [facility] [address] [place] [address], * (ABNORMAL) Comprehensive metabolic panel (09/08/2024 3:32 PM EST) Sodium 138 133 - 145 mmol/L LAB CHEMISTRY METHOD 09/08/2024 7:50 PM EST [facility] Potassium 4.1 3.5 - 5.5 mmol/L LAB CHEMISTRY METHOD 09/08/2024 7:50 PM [facility] Chloride 101 96 - 110 mmol/L LAB CHEMISTRY METHOD 09/08/2024 7:50 PM [facility] CO2 35(H) 21 - 32 mmol/L LAB CHEMISTRY METHOD 09/08/2024 7:50 PM EST [facility] Anion Gap 2(L) 3 - 11 LAB CHEMISTRY METHOD 09/08/2024 7:50 PM EST [facility] Glucose 86 70 - 100 mg/dL LAB CHEMISTRY METHOD 09/08/2024 7:50 PM [facility] BUN 12 5 - 25 mg/dL LAB CHEMISTRY METHOD 09/08/2024 7:50 PM [facility] Creatinine 0.98 0.50 - 1.10 mg/dL LAB CHEMISTRY METHOD 09/08/2024 7:50 PM [facility] eGFR 71 >=60 mL/min/1. 73m2 LAB CHEMISTRY METHOD 09/08/2024 7:50 PM [facility] Comment:Calculation based on the??Chronic Kidney Disease Epidemiology Collaboration (CKD-EPI) equation refit??without adjustment for race. BUN/Creatinine Ratio 12.2 LAB CHEMISTRY METHOD 09/08/2024 7:50 PM [facility] Calcium 9.1 8.5 - 10.5 mg/dL LAB CHEMISTRY METHOD 09/08/2024 7:50 PM [facility] AST (SGOT) 19 10 - 42 unit/L LAB CHEMISTRY METHOD 09/08/2024 7:50 PM [facility] ALT (SGPT) 19 10 - 60 unit/L LAB CHEMISTRY METHOD 09/08/2024 7:50 PM [facility] Alkaline Phosphatase 42 42 - 121 unit/L LAB CHEMISTRY METHOD 09/08/2024 7:50 PM [facility] Total Protein 7.3 6.0 - 8.0 g/dL LAB CHEMISTRY METHOD 09/08/2024 7:50 PM [facility] Albumin 4.0 3.2 - 5.0 g/dL LAB CHEMISTRY METHOD 09/08/2024 7:50 PM [facility] Total Bilirubin 1.0 0.0 - 1.4 mg/dL LAB CHEMISTRY METHOD 09/08/2024 7:50 PM [facility] Blood Venous blood specimen / Unknown Venipuncture / Unknown 09/08/2024 3:32 PM EST 09/08/2024 3:32 PM EST [employer] LAB BLOOD ORDERABLES Final Resul t [facility] [address] [place] [address], [place] [phone] * Culture throat (09/08/2024 12:00 AM EST) Culture, Throat No pathogens isolated. 09/10/2024 10:18 AM EST [facility] Swab Structure of anterior portion of neck / Unknown 09/08/2024 09/08/2024 7:22 PM EST [employer] LAB MICROBIOLOGY - GENERAL ORDER VERNELL Final Result [facility] [address] [place] [address], [place] [phone] from Last 3 Months Insurance [facility] Care Teams Metal Miner Blasting Relationship Specialty Start Date End Date Malick Roca DO [address] [place] [phone] PCP - General 07/03/23
--- OUTSIDE RECORDS SUMMARY | 2024-09-23 13:47 | XMS_ITS | Encounter Summary ---
Author Organization [facility] Address [address] [place] [address] Care Team Providers Care Small Products Ii Assembler Name Role Phone MadonnaMalick concepcion DO Primary Care Provider [phone] Encounter Details Date Type Department Care Team (Late st Contact Info) Description 09/08/2024 Lab Requisition [facility] - Main Lab 299 [facility] [address] Jacky Voss [address] [place] [id number] Pain in throat Social History Tobacco Use Types Packs/Day Years Used Date Smoking Tobacco: Every Day Smokeless Tobacco: Never Alcohol Use Standard Drinks/Week Comments No 0 (1 standard drink = 0.6 oz pur e alcohol) Comments Unknown Sex and Gender Information Value Date Recorded Sex Assigned at Not on file Legal Sex Female 9:02 AM EST Gender Identity Not on file Sexual Orientation Not on file documented as of this encounter Plan of Treatment Not on file documented as of this encounter Procedures Procedure Name Priority Date/Time Associated Diagnosis Comments CULTURE THROAT Routine 09/08/2024 12:00 AM EST Pain in throat documented in this encounter Results * Culture throat (09/08/2024 12:00 AM EST) Culture, Throat No pathogens isolated. 09/10/2024 10:18 AM EST [facility] Swab Structure of anterior portion of neck / Unknown 09/08/2024 09/08/2024 7:22 PM EST us Jacky Voss LAB MICROBIOLOGY - GENERAL ORDER VERNELL Final Result [facility] ([facility]) [facility] [address] [place] [address], [place] [phone] documented in this encounter Visit Diagnoses Diagnosis Pain in throat Throat pain documented in this encounter Care Teams Small Products Ii Assembler Relationship Specialty Start Date End Date Malick Roca DO [address] [place] [phone] PCP - General 07/03/23 documented as of this encounter
== END 2024-09-23 14:20 | disposition home or self-care (01) ==
PROVIDERS: PCP Internal Medicine; Visit Provider Orthopaedic Surgery
DX: M25.641 Stiffness of right hand, not elsewhere classified (principal); M25.631 Stiffness of right wrist, not elsewhere classified; M25.531 Pain in right wrist; R20.0 Anesthesia of skin; R20.2 Paresthesia of skin
CPT/HCPCS: 99213

== ENCOUNTER 2024-09-23 13:23 | Outpatient (REF) | payer OTHER, SELFPAY ==
--- NOTE | ~2024-09-23 | XR_ITS ---
EXAMINATION: XR WRIST 3 OR MORE VIEWS RIGHT HISTORY: M25.531 - Pain in right wrist COMPARISON: Comparison is made with the prior examination dated 04/05/2024. FINDINGS: Three views of the right wrist are submitted. Osseous mineralization is normal. There is no fracture or dislocation. The joint spaces are preserved. The soft tissues are unremarkable. XR/XR wrist RT min 3V IMPRESSION: Unremarkable examination of the right wrist. Electronically signed by: Brian Kaur MD 09/27/2024 08:31 AM MARK
--- OUTSIDE RECORDS SUMMARY | 2024-09-23 14:22 | XMS_ITS | Clinical Summary ---
Author Organization 175 [facility] Address [address] [place] [address] Phone Care Team Providers Care Employment Services Director Name Role Phone Malick Roca DO Primary Care Provider [phone] Allergies Active Allergy Reactions Criticality Noted Date Comments Pearce Oil Anaphylaxis High 05/10/2013 Medications methadone (DOLOPHINE) [...] Department Care Team Description 09/08/2024 Lab Requisition [facility] - Main Lab 299 [facility] [place] [address] Jacky Voss Pain in throat [...] mg/dL LAB CHEMISTRY METHOD 09/08/2024 7:47 PM [facility] Triglycerides 58 0 - 150 mg/dL LAB CHEMISTRY METHOD 09/08/2024 7:47 PM [facility] HDL 65 >=40 mg/dL LAB CHEMISTRY METHOD 09/08/2024 7:47 PM [facility] LDL Calculated 102(H) 0 - 100 mg/dL LAB CHEMISTRY METHOD 09/08/2024 7:47 PM [facility] VLDL Cholesterol Riky 11.6 mg/dL LAB CHEMISTRY METHOD 09/08/2024 7:47 PM EST [facility] Non HDL Chol. (LDL+VLDL) 114 <145 mg/dL LAB CHEMISTRY METHOD 09/08/2024 7:47 PM [facility] Chol/HDL Ratio 2.8 0.0 - 4.4 LAB CHEMISTRY METHOD 09/08/2024 7:47 PM [facility] Blood Venous blood specimen / Unknown Venipuncture / Unknown 09/08/2024 3:32 PM EST 09/08/2024 3:32 PM EST us Jacky Voss LAB BLOOD ORDERABLES Final Resul t [facility] [address] [place] [address], [place] [phone] * (ABNORMAL) CBC auto differential (09/08/2024 3:32 PM EST) WBC 3.3(L) 4.8 - 10.8 K/mcL LAB HEMETOLOGY METHOD 09/08/2024 7:26 PM [facility] RBC 4.40 3.80 - 4.80 M/mcL LAB HEMETOLOGY METHOD 09/08/2024 7:26 PM [facility] Hemoglobin 12.9 11.5 - 16.0 g/dL LAB HEMETOLOGY METHOD 09/08/2024 7:26 PM [facility] Hematocrit 39.8 35.0 - 47.0 % LAB HEMETOLOGY METHOD 09/08/2024 7:26 PM [facility] MCV 89.8 79.0 - 98.0 FL LAB HEMETOLOGY METHOD 09/08/2024 7:26 PM [facility] MCH 29.1 27.0 - 32.0 pcg LAB HEMETOLOGY METHOD 09/08/2024 7:26 PM [facility] MCHC 32.4 32.0 - 37.0 g/dL LAB HEMETOLOGY METHOD 09/08/2024 7:26 PM [facility] RDW 14.3 11.0 - 15.0 % LAB HEMETOLOGY METHOD 09/08/2024 7:26 PM [facility] Platelets 159 130 - 400 K/mcL LAB HEMETOLOGY METHOD 09/08/2024 7:26 PM [facility] MPV 10.7 7.0 - 11.0 FL LAB HEMETOLOGY METHOD 09/08/2024 7:26 PM [facility] NRBC 0.0 <1.0 % LAB HEMETOLOGY METHOD 09/08/2024 7:26 PM [facility] NRBC Absolute 0.00 <0.10 K/mcL LAB HEMETOLOGY METHOD 09/08/2024 7:26 PM [facility] Neutrophils Relative 38.6 % LAB HEMETOLOGY METHOD 09/08/2024 7:26 PM [facility] Lymphocytes Relative 43.7 % LAB HEMETOLOGY METHOD 09/08/2024 7:26 PM [facility] Monocytes Relative 14.7 % LAB HEMETOLOGY METHOD 09/08/2024 7:26 PM [facility] Eosinophils Relative 2.1 % LAB HEMETOLOGY METHOD 09/08/2024 7:26 PM [facility] Basophils Relative 0.6 % LAB HEMETOLOGY METHOD 09/08/2024 7:26 PM [facility] Immature Granulocytes Relative 0.3 % LAB HEMETOLOGY METHOD 09/08/2024 7:26 PM [facility] Neutrophils Absolute 1.29(L) 1.50 - 7.00 K/mcL LAB HEMETOLOGY METHOD 09/08/2024 7:26 PM [facility] Lymphocytes Absolute 1.46 1.00 - 5.00 K/mcL LAB HEMETOLOGY METHOD 09/08/2024 7:26 PM EST [facility] Monocytes Absolute 0.49 0.20 - 1.00 K/[facility] LAB HEMETOLOGY METHOD 09/08/2024 7:26 PM EST [facility] Eosinophils Absolute 0.07 0.00 - 0.50 K/[facility] LAB HEMETOLOGY METHOD 09/08/2024 7:26 PM EST [facility] Basophils Absolute 0.02 0.00 - 0.20 K/[facility] LAB HEMETOLOGY METHOD 09/08/2024 7:26 PM EST [facility] Immature Granulocytes Absolute 0.01 0.00 - 0.03 K/[facility] LAB HEMETOLOGY METHOD 09/08/2024 7:26 PM EST [facility] Blood Venous blood specimen / Unknown Venipuncture / Unknown 09/08/2024 3:32 PM EST 09/08/2024 3:32 PM EST [employer] LAB BLOOD ORDERABLES Final Resul t Performing Organization Address City/[facility]/ZIP Co de Phone Number [facility] [address] [place] [address], [place] [phone] * Thyroid stimulating hormone (09/08/2024 3:32 PM EST) TSH 0.99 0.40 - 4.00 mcIU/mL LAB CHEMISTRY METHOD 09/08/2024 7:55 PM EST [facility] Blood Venous blood specimen / Unknown Venipuncture / Unknown 09/08/2024 3:32 PM EST 09/08/2024 3:32 PM EST [employer] LAB BLOOD ORDERABLES Final Resul t [facility] [address] [place] [address], [place] [phone] * (ABNORMAL) Iron (09/08/2024 3:32 PM EST) Iron 24(L) 40 - 150 mcg/dL LAB CHEMISTRY METHOD 09/08/2024 7:47 PM EST [facility] Blood Venous blood specimen / Unknown Venipuncture / Unknown 09/08/2024 3:32 PM EST 09/08/2024 3:32 PM EST [employer] LAB BLOOD ORDERABLES Final Resul t [facility] [address] [place] [address], [place] [phone] * Hemoglobin A1c (09/08/2024 3:32 PM EST) [facility] Hemoglobin A1C 5.6 <6.5 % LAB CHEMISTRY METHOD 09/08/2024 8:14 PM EST [facility] Mean Bld Glu Estim. 114 mg/dL LAB CHEMISTRY METHOD 09/08/2024 8:14 PM EST [facility] Blood Venous blood specimen / Unknown Venipuncture / Unknown 09/08/2024 3:32 PM EST 09/08/2024 3:32 PM EST [employer] LAB BLOOD ORDERABLES Final Resul t Performing Organization Address City/[facility]/ZIP Co de Phone Number [facility] [address] [place] [address], [place] [phone] * Ferritin (09/08/2024 3:32 PM EST) Pathologist [facility] Ferritin 32 8 - 252 ng/mL LAB CHEMISTRY METHOD 09/08/2024 7:47 PM EST [facility] Blood Venous blood specimen / Unknown Venipuncture / Unknown 09/08/2024 3:32 PM EST 09/08/2024 3:32 PM EST Jacky Voss LAB BLOOD ORDERABLES Final Resul t [facility] [address] [place] [address], * (ABNORMAL) Comprehensive metabolic panel (09/08/2024 3:32 PM EST) Sodium 138 133 - 145 mmol/L LAB CHEMISTRY METHOD 09/08/2024 7:50 PM EST [facility] Potassium 4.1 3.5 - 5.5 mmol/L LAB CHEMISTRY METHOD 09/08/2024 7:50 PM [facility] Chloride 101 96 - 110 mmol/L LAB CHEMISTRY METHOD 09/08/2024 7:50 PM [facility] CO2 35(H) 21 - 32 mmol/L LAB CHEMISTRY METHOD 09/08/2024 7:50 PM EST [facility] Anion Gap 2(L) 3 - 11 LAB CHEMISTRY METHOD 09/08/2024 7:50 PM EST [facility] Glucose 86 70 - 100 mg/dL LAB CHEMISTRY METHOD 09/08/2024 7:50 PM [facility] BUN 12 5 - 25 mg/dL LAB CHEMISTRY METHOD 09/08/2024 7:50 PM [facility] Creatinine 0.98 0.50 - 1.10 mg/dL LAB CHEMISTRY METHOD 09/08/2024 7:50 PM [facility] eGFR 71 >=60 mL/min/1. 73m2 LAB CHEMISTRY METHOD 09/08/2024 7:50 PM [facility] Comment:Calculation based on the??Chronic Kidney Disease Epidemiology Collaboration (CKD-EPI) equation refit??without adjustment for race. BUN/Creatinine Ratio 12.2 LAB CHEMISTRY METHOD 09/08/2024 7:50 PM [facility] Calcium 9.1 8.5 - 10.5 mg/dL LAB CHEMISTRY METHOD 09/08/2024 7:50 PM [facility] AST (SGOT) 19 10 - 42 unit/L LAB CHEMISTRY METHOD 09/08/2024 7:50 PM [facility] ALT (SGPT) 19 10 - 60 unit/L LAB CHEMISTRY METHOD 09/08/2024 7:50 PM [facility] Alkaline Phosphatase 42 42 - 121 unit/L LAB CHEMISTRY METHOD 09/08/2024 7:50 PM [facility] Total Protein 7.3 6.0 - 8.0 g/dL LAB CHEMISTRY METHOD 09/08/2024 7:50 PM [facility] Albumin 4.0 3.2 - 5.0 g/dL LAB CHEMISTRY METHOD 09/08/2024 7:50 PM [facility] Total Bilirubin 1.0 0.0 - 1.4 mg/dL LAB CHEMISTRY METHOD 09/08/2024 7:50 PM [facility] Blood Venous blood specimen / Unknown Venipuncture / Unknown 09/08/2024 3:32 PM EST 09/08/2024 3:32 PM EST [employer] LAB BLOOD ORDERABLES Final Resul t [facility] [address] [place] [address], [place] [phone] * Culture throat (09/08/2024 12:00 AM EST) Culture, Throat No pathogens isolated. 09/10/2024 10:18 AM EST [facility] Swab Structure of anterior portion of neck / Unknown 09/08/2024 09/08/2024 7:22 PM EST [employer] LAB MICROBIOLOGY - GENERAL ORDER VERNELL Final Result [facility] [address] [place] [address], [place] [phone] from Last 3 Months Insurance [facility] [employer] Care Teams Employment Services Director Relationship Specialty Start Date End Date Malick Roca DO [address] [place] [phone] PCP - General 07/03/23
--- OUTSIDE RECORDS SUMMARY | 2024-09-23 14:22 | XMS_ITS | Encounter Summary ---
Author Organization [facility] Address [address] [place] [address] Care Team Providers Care Project Structural Engineer Name Role Phone MadonnaMalick concepcion DO Primary Care Provider [phone] Encounter Details Date Type Department Care Team (Late st Contact Info) Description 09/08/2024 Lab Requisition [facility] - Main Lab [address] [facility] [place] [address] Jacky Voss [address] [place] [phone] Pain in throat Social History Tobacco Use [...] No pathogens isolated. 09/10/2024 10:18 AM EST [facility] ([facility]) [facility] Swab Structure of anterior portion of neck / Unknown 09/08/2024 09/08/2024 7:22 PM EST us Jacky Voss LAB MICROBIOLOGY - GENERAL ORDER VERNELL Final Result [facility] ([facility]) [facility] [address] [place] [address], [place] [phone] documented in this encounter Visit Diagnoses Diagnosis Pain in throat Throat pain documented in this encounter Care Teams Project Structural Engineer Relationship Specialty Start Date End Date Malick Roca DO [address] [place] [phone] PCP - General 07/03/23 documented as of this encounter
== END 2024-09-23 13:24 | disposition home or self-care (01) ==
LOC: HO.HOSX 13:23
PROVIDERS: PCP Internal Medicine; Visit Provider Orthopaedic Surgery
DX: M25.531 Pain in right wrist (principal); M25.641 Stiffness of right hand, not elsewhere classified; M25.631 Stiffness of right wrist, not elsewhere classified; R20.0 Anesthesia of skin; R20.2 Paresthesia of skin
CPT/HCPCS: 73110; 99212

== ENCOUNTER → 2024-09-23 14:05 | Outpatient (BNV) | payer OTHER, SELFPAY | PROVIDERS: PCP Internal Medicine; Visit Provider Radiology Diagnostic Radiology | DX: M25.531 Pain in right wrist (principal) | CPT/HCPCS: 73110 ==

== ENCOUNTER 2024-12-13 13:23 | Outpatient (AMB) | payer OTHER, SELFPAY ==
[2024-12-13 13:25] VITALS: BP 98/72; BMI 20.5
--- NOTE | 2024-12-13 13:25 | MHC.OFFVIS ---
Vital Signs 12/13/24 13:25 Height 5 ft 5 in Weight 123 lb BMI 20.5 BP 98/72 Blood Pressure Location Rt brachial Position Sitting Intake Visit Reasons: Botox-LVM Intake Note: patient presents for botox injection. pharmacy supplied Allergies No Known Allergies Allergy (Verified 12/13/24 13:27) Medication List - Last Reconciled 12/13/24 by Jimena Rodriguez MD methadone 25 mg PO BID onabotulinumtoxinA (Botox) 200 units IM ONCE 90 days rizatriptan mg PO sumatriptan succinate 0 mg PO HPI Comments Details: ? 49y/o female comes for treatment of migraines with botox. This is her second session. she had a good response after her first session . she had daily migraines 25-30/month and now she has 3/week and less intense and lasts less than 2 hrs .How long do the migraines last- 1-2 days Prebotox - Intensity of migraine- severe prior to botox ER visits related to migraine 1-2 pre botox Effectiveness of botox from last two treatment(s) How many migraine days since receiving treatment: Change? in intensity of migraine?less Change in frequency of migraine?decreased Change in use of acute medication for migraine?decreased Change in quality of life?improved ER visits related to migraine?0 Explanation for any gaps in treatment- Have at least three months elapsed since last treatment (Last botox date - frequency of injections) yes ??? Most frequent reported adverse reactions following injection of botox for chronic migraine include neck pain (9%), headache(5%), eyelid ptosis(4%), migraine(4%), muscular weakness(4%), musculuskeletal stiffness(4%), bronchitis(3%), injection site pain (3%), musculoskeletal pain(3%), myalgia(3%), facial paresis(2%), HTN(2%) and muscle spasms(2%) were discussed in detail. ??? Botulinum toxin typeA 200units Lot no [id number] November 2026 was diluted with 4 cc of normal saline . ??? Muscles injected- ??? Frontalis 4 sites ??? Procerus 1 site ??? Tombstone Erector Helper- 2 sites ??? Temporalis- 8 sites ??? Occipitalis- 6 sites ??? Cervical paraspinals- 4 sites ??? Trapezius- 6 sites- 10 units each ??? 5 units each in 31 site ??? Total use- 185units ??? Discarded-15units PFSH Medical History Chronic migraine without aura, intractable, without status migrainosus Anemia Drug abuse Depression Anxiety Family History Father Diabetes PNA (pneumonia) Mother Diabetes Social History Household Members: None Alcohol intake: current Alcohol intake frequency: holidays/special occasions only Patient Tobacco Use Status: Current everyday Tobacco user Current occupational status: employed Current occupation: rt handed Physical Exam Vital Signs: Last Vital Signs BP 98/72 12/13/24 13:25 BMI result Body Mass Index 20.5 Const General: cooperative and tired appearing Nutritional Appearance: average body habitus Orientation/consciousness: patient oriented x3 Neck Neck: Yes full ROM and Yes supple Neuro General: patient oriented x3, gait normal and moves all extremities Cranial nerves: Yes CN's II-XII intact bilaterally Cognition (Neuro): normal cognition Gait exam (Neuro): Normal gait present Motor exam (neuro): 5/5 motor strength present throughout, Pronator motor function not present and no tremor noted Office Procedures Botulinum toxin Injection 00521 - Migraine Procedure code (CPT) selection complete Office Meds onabotulinumtoxinA 200 unit solution for injection Performing Provider: Jimena Rodriguez MD Performing Location: [facility] Administered by: Jimena Rodriguez MD on 12/13/24 13:58 Dose Route Admin Location Dispensed Lot Number Expiration Date [facility] [employer] Instructor 185 unit subcut 200 units [id number] ALLERGAN/BOTOX Comments: see HPI Assessment & Plan Assessment & Plan (1) Chronic migraine without aura, intractable, without status migrainosus: Code(s): G43.719 - Chronic migraine without aura, intractable, without status migrainosus Category: Medical Plan Patient tolerated the procedure well she will call with any side effects Orders: Orders AMB Botulinum toxin Injection Today G43.719 - Chronic migraine without aura, intractable, without status migrainosus Medications: New onabotulinumtoxinA 200 units subcut ONCE 1 ea 0RF migraine G43.719 - Chronic migraine without aura, intractable, without status migrainosus Coding Level of Care Code Est Pt Level 1 (28746) Diagnoses Chronic migraine without aura, intractable, without status migrainosus G43.719 CPT Codes Botox Injection - Botox 3: 64282 - Migraine ([id number])
--- OUTSIDE RECORDS SUMMARY | 2024-12-13 14:29 | XMS_ITS | Clinical Summary ---
Author Organization [address] [place] [address] [place] [phone] Phone Care Team Providers Care Product Development Scientist Name Role Phone Physician, No Pcp Primary Care Provider Unavaila ble Allergies Active Allergy Reactions Criticality Noted Date Comments [place] [employer] Oil Anaphylaxis High 05/10/2013 Tree Nuts 11/23/2024 Hazelnuts and almonds Medications methadone (DOLOPHINE) 10 mg/5 mL solution Take 50 mL by mouth every 12 hours. Active rizatriptan (MAXALT) 10 mg tablet as needed. 05/25/20 Active sertraline (ZOLOFT) 25 mg tablet Take 1 Tablet by mouth daily. Active SUMAtriptan (IMITREX) 100 mg tablet as needed. 05/25/20 Active EPINEPHrine (EPIPEN) 0.3 mg/0.3 mL injection Inject 0.3 mL (0.3 mg total) into the thigh if needed for anaphylaxis. For severe allergic reactions intramuscularly 2 each 10/18/19 25 Active diphenhydrAMIN E (BENADRYL) 25 mg tablet Take 1 capsule by mouth every 4-6 hours as needed for itching. 24 tablet 10/18/19 25 Active Active Problems Problem Noted Date Diagnosed Date Anxiety 05/13/2013 Narcotic addiction (CMS/HCC V24, CMS/HCC V28) Encounters Date Type Department Care Team Description 11/23/2024 3:45 PM EDT Consult Orthopedic Surgery [address] [place] [phone] Martínez Youssef MD Right wrist pain (Primary Dx); Pain of ulnar side of wrist; Hand numbness; Arthritis of carpometacarpal (CMC) joint of right thumb 10/17/2024 6:35 PM EDT - 10/17/2024 10:45 PM EDT Emergency [facility] Emergency [address] [place] [phone] Neal Healy MD Allergic reaction, initial encounter (Primary Dx) Discharge Disposition: Home or Self Care from Last 3 Months Surgical History Surgery [...] Information Value Date Recorded Sex Assigned at Female 10/17/2024 7:00 PM EDT Legal Sex Female 9:02 AM EST Gender Identity Female 10/17/2024 7:00 PM EDT Sexual Orientation Straight 10/17/2024 7: 00 PM EDT Obstetrics History Last Filed Vital Signs Vital Sign Reading Time Taken Comments Blood Pressure 105/57 10/17/2024 6:31 PM EDT Pulse 88 10/17/2024 6:31 PM EDT Temperature 36.6 ??C (97.9 ??F) 10/17/2024 6:31 PM ED T Respiratory Rate 20 10/17/2024 6:31 PM EDT Oxygen Saturation 100% 10/17/2024 6:31 PM EDT Inhaled Oxygen Concentration - - Weight 59 kg (130 lb) 11/23/2024 4:09 PM EDT Height 165.1 cm (5' 5 ) 11/23/2024 4:09 PM EDT Body Mass Index 21.63 11/23/2024 4:09 PM EDT Plan of Treatment Upcoming Encounters Date Type Department Care Team (Late st Contact Info) Description 01/24/2025 1:00 PM EDT Office Visit Orthopedic Surgery - [place] [address] [facility] [address] [place] [phone] Martínez Youssef MD [address] [place] [address] [address] [place] [address] Health Maintenance Due Date Last Done Comments [...] Influencers of Health Screening 07/06/2022 COVID-19 Vaccine ( - 2023-2 5 season) 2024 Influenza Vaccine (Season Ended) 2025 Cholesterol Screening (Lipid Panel) 09/08/2029 09/08/2024 HIB [...] age to complete this topic Meningococcal B Vaccine Aged Out No l onger eligible based on patient's age to complete this topic RSV Immunization Patients Un shilpa 20 months Aged Out No longer eligible b ased on patient's age to complete this topic Varicella Vaccines Aged Out No longer eligible based on patient's age to complete this topic Procedures Procedure Name Priority Date/Time Associated Diagnosis Comments XR WRIST 3+ VIEWS RIGHT Routine 11/23/2024 3:56 PM EDT Right wrist pain [facility] 30-74 MINUTES Routine 10/17/2024 6:27 PM EDT LIPID PANEL WITH REFLEX TO DIRECT LDL Routine 09/08/2024 3:32 PM EST Laboratory tests ordered as part of a complete physical exam (CPE) Iron deficiency Anemia from Last 3 Months or Most Recently Relevant to Health Maintenance Results * XR Wrist 3+ Views Right (11/23/2024 3:56 PM EDT) Anatomical Region Laterality Modality Upper Extremities, Wrist Right Compute d Radiography Narrative 11/23/2024 4:05 PM EDT Three-view x-ray of the right wrist shows no evidence of fracture or dislocation, there is ulnar neutral variance, normal carpal alignment with no SL widening. ??There is mild degenerative changes at the thumb CMC joint with small marginal osteophyte formation. Impression: Mild right thumb CMC arthritis. Martínez Youssef MD IMG XR PROCEDURES Final Result * [facility] 30-74 MINUTES (10/17/2024 6:27 PM EDT) Narrative Neal Healy MD - 10/17/2024 6:27 PM EDT Neal Healy MD ? 10/17/2024 11:15 PM Critical Care Performed by: Neal Healy MD Authorized by: Neal Healy MD ?? Critical care provider statement: ??Critical care time (minutes): ??45 ??Critical care time was exclusive of: ??Separately billable procedures and treating other patients ??Critical care was necessary to treat or prevent imminent or life-threatening deterioration of the following conditions: Anaphylaxis. ??Critical care was time spent personally by me on the following activities: ??Development of treatment plan with patient or surrogate, evaluation of patient's response to treatment, examination of patient and ordering and performing treatments and interventions Comments: ?? Patient required critical care due to a life-threatening allergic reaction of the required IM epinephrine injection. us Neal Healy MD IN CLINIC/BEDSIDE ORDERABLES Fi nal Result * (ABNORMAL) Lipid panel with reflex to direct LDL (09/08/2024 3:32 PM EST) Cholesterol 179 0 - 200 mg/dL LAB CHEMISTRY METHOD 09/08/2024 7:47 PM EST [facility] Triglycerides 58 0 [...] 09/08/2024 7:47 PM [facility] Non HDL Chol. (LDL+VLDL) 114 <145 mg/dL LAB CHEMISTRY METHOD 09/08/2024 7:47 PM [facility] Chol/HDL Ratio 2.8 0.0 - 4.4 LAB CHEMISTRY METHOD 09/08/2024 7:47 PM [facility] Blood Venous blood specimen / Unknown Venipuncture / Unknown 09/08/2024 3:32 PM EST 09/08/2024 3:32 PM EST us Jacky Voss LAB BLOOD ORDERABLES Final Resul t [facility] [address] [place] [address], from Last 3 Months or Most Recently Relevant to Health Maintenance Insurance [facility] [employer] Care Teams Product Development Scientist Relationship Specialty Start Date End Date Physician, No Pcp PCP - General 10/17/24
--- OUTSIDE RECORDS SUMMARY | 2024-12-13 14:29 | XMS_ITS | Data Portability ---
Author Organization [place] [facility], Allergy Address [address] [place] [phone] Care Team Providers Care Supplier Engineer Name Role Phone DAVID GARNER Primary Care Provider [phone] Assessment Encounter Date Assessment Date Assessment LastModified by Organization Details LastModified Time 11/29/2024 11/29/2024 Patient describe s a long history of dysphagia for solid food. She has required upper endoscopy to remove food bolus in the past. Fiberoptic laryngoscopy today was benign with no lesions of the larynx or hypopharynx or pooling of secretions. Offered further evaluation with barium swallow or referral to gastroenterology who may be able to perform upper endoscopy and esophageal dilation if appropriate. She wishes to go directly to gastroenterology [email or web address] Not available 11/29/2024 15:06:03 Plan of Treatment Reminders Order Date Submit Date Provider Last Modified By Organization Details Last Modified Time Details Appointments None record ed. Lab None record ed. Referral gastro entero logist referr al - dyspha nadine for solids , requir ing UGI in past to remove food. 2024 025 [facility] Gastroenterology Scheduling Department, [address] [place] [address], [address], 10:34:13 Procedures None record ed. Surgeries None record ed. Imaging None record ed. Medication Orders None record ed. Patient TargetsNo targets recorded. Patient InstructionsNo instructions recorded. Reason for Referral Produce Sorter Referral for Dysphagia dysphagia for solids, requiring UGI in past to remove food. Referring Physician: Mando Alberts, Otolaryngology, Encounter Date: 11/29/2024 Problems Name Problem SNOMED Code Status Onset Date Resolution Date Notes Provider Name and Address Organization Details Recorded Time Dysphagia 30999705 Active 025 MANDO ALBERTS MD [address] [facility] [address], [place], [phone] , [facility] 22:05:58 Problem Notes None recorded. Procedures Surgical History Date Name Laterality Status Provider Name and Address Organization Details Recorded Time 11/29/2024 FOL_DP completed MANDO ALBERTS MD [address] [facility] [address], [place], [phone], [facility] - [facility] 11/28/2024 22:05:50 Imaging Results None recorded. Procedure Notes None recorded. Medical Equipment None Reported. Allergies Allergen ID Allergen Name Allergen Category Reaction Reaction Severity Criticality Documentation Date Start Date Code Code System Note Provider Name and Address Organization Details Recorded Time 025315 almond allergeni c extract food Not available Not available Not available 11/29/2024 84637 7 RxNorm SHAHID COMZara parker [facility] 5 14:53:18 494784 hazelnut allergeni c extract food Not available Not available Not available 11/29/2024 80762 3 RxNorm SHAHID parker [facility] 5 14:53:24 Medications Name Sig Start Date Stop Date Status Note LastModified by Organization Details LastModified Time sumatriptan 100 mg tablet TAKE 1 TAB NEEDED, MAY TAKE SECOND DOSE AT LEAST 2 HOURS AFTER FIRST DOSE UP MAX 2 TABS/DAY active Not Available Not Available No t Available prednisone 20 mg tablet TAKE 2 TABLETS (40 MG TOTAL) BY MOUTH ONE TIME EACH DAY FOR 5 DAYS. 11/29 completed Not Available Not Available Not Available rizatriptan 10 mg tablet PLEASE SEE ATTACHED FOR DETAILED DIRECTION S active Not Available Not Available No t Available sertraline 25 mg tablet TAKE 4 TABLETS BY MOUTH ONCE DAILY 11/29 completed Not Available Not Available Not Available Banophen 25 mg capsule TAKE 1 CAPSULE BY MOUTH EVERY 4-6 HOURS NEEDED FOR ITCHING. active Not Available Not Available No t Available epinephrine 0.3 mg/0.3 mL injection, auto-inject or PLEASE SEE ATTACHED FOR DETAILED DIRECTION S active Not Available Not Available No t Available lactulose 10 gram/15 mL oral solution TAKE 15 ML BY MOUTH TWICE A DAY NEEDED 11/29 completed Not Available Not Available Not Available methadone 2.5 mg/0.5 mL in 0.9 % sodium chloride intravenous syringe Inject by intraveno us route. active Not Available Not Available No t Available Vitals Date Recorded Body height Body mass index (BMI) Body weight Provider Name and Address Organization Details Last Updated DateTime 11/29/2024 165.1 cm 21.6 kg/m2 33894.01 timo CHUNG [place] [facility] 11/29/2024 14:52:49 Social History None recorded. Functional Status None recorded. Mental Status None recorded. Family History Nothing Reported. Medical History No medical history recorded. Gynecological HistoryNo gynecological history recorded. Obstetrics History GPAL:G 0 P 0 0 0 0 Past Encounters Encounter ID Performer Location Encounter Start Date Encounter Closed Date Diagnosis/Indication Diagnosis SNOMED-CT Code Diagnosis ICD10 Code Diagnosis Note [id number] MANDO ALBERTS MD [facility] [address] [phone] 11/29/2024 14:40:16 11/29/2024 15:06:33 Dysphagia 78446547 R13.10 Health Concerns Section Related Observation LastModified by Organization Detai ls LastModified Time None Recorded Concern Status LastModified by Organization Details LastModified Time None Recorded Advance Directives Directive None Recorded Payers Insurance Date Sequence Insurance Name Policy Number Policy Andrew Covered Member ID Andrew Member ID Guarantor Name 11/29/2024 1 [facility] (MEDICAID HMO) [id number] Hayley Allen [id number] Hayley Allen Notes Date Note Type Note Provider Name and Address Organization Details Recorded Time 11/29/2024 text/html dysphagiaweight losspills and solid food gets stuckonset about 20 yrs agoseveral UGI to remove FB (meat)limited diet of ice cream, rice, liquids - avoids meat until thoroughly chewedno imaging with swallow studytobacco - rare for past few months MANDO ALBERTS MD [address] [place] [address], [phone], [place] [facility] 11/29/2024 15:06:20 OBGyn Episode No OBEpisode recorded.
--- OUTSIDE RECORDS SUMMARY | 2024-12-13 14:29 | XMS_ITS | Encounter Summary ---
Author Organization [facility] Address [address] [place] [address] Care Team Providers Care Biostatistics Professor Name Role Phone Physician, No Pcp Primary Care Provider Unavaila ble Encounter Details Date Type Department Care Team (Late Contact Info) Description 09/08/2024 Lab Requisition [facility] - Main Lab [address] [facility] [place] [address] Jacky Voss [address] [place] [phone] Pain in throat Social History Tobacco Use [...] Orientation Straight 10/17/2024 7: 00 PM EDT documented as of this encounter Plan of Treatment Upcoming Encounters Date Type Department Care Team (Late Contact Info) Description 01/24/2025 1:00 PM EDT Office Visit Orthopedic Surgery - [place] [address] [facility] [address] [place] [address] Martínez Youssef MD [address] [facility] [address] [place] [address] documented as of this encounter Procedures Procedure Name Priority Date/Time Associated Diagnosis Comments CULTURE THROAT Routine 09/08/2024 12:00 AM EST Pain in throat documented in this encounter Results * Culture throat (09/08/2024 12:00 AM EST) Culture, Throat No pathogens isolated. 09/10/2024 10:18 AM EST [facility] Swab Structure of anterior portion of neck / Unknown 09/08/2024 09/08/2024 7:22 PM EST us Jacky Voss LAB MICROBIOLOGY - GENERAL ORDER VERNELL Final Result [facility] [address] [place] [address], documented in this encounter Visit Diagnoses Diagnosis Pain in throat Throat pain documented in this encounter Care Teams Biostatistics Professor Relationship Specialty Start Date End Date Physician, No Pcp PCP - General 10/17/24 documented as of this encounter
== END 2024-12-13 13:56 | disposition home or self-care (01) ==
LOC: HO.HSMS 13:24
PROVIDERS: PCP Internal Medicine; Visit Provider Psychiatry & Neurology Neurology
DX: G43.719 Chronic migraine without aura, intractable, without status migrainosus (principal)
CPT/HCPCS: 64615

== ENCOUNTER → 2024-12-13 13:23 | Outpatient (BNVA) | payer OTHER, SELFPAY | PROVIDERS: PCP Internal Medicine; Visit Provider Psychiatry & Neurology Neurology | DX: G43.719 Chronic migraine without aura, intractable, without status migrainosus (principal) | CPT/HCPCS: 64615; 99211; J0585 ==

== ENCOUNTER 2025-03-14 12:24 | Outpatient (AMB) | payer OTHER, SELFPAY ==
--- NOTE | 2025-03-14 12:36 | A.OFFVIS_ITS ---
Vital Signs 03/14/25 12:37 Height 5 ft 5 in Weight 128 lb 4 oz BMI 21.3 BP 110/62 Blood Pressure Location Lt brachial Position Sitting Pulse 95 Pulse Source Pulse Oximeter Pulse Oximetry (%) 94 Oxygen Delivery Method Room Air Intake Visit Reasons: Botox Intake Note: patient presents follow up for Botox Allergies No Known Allergies Allergy (Verified 03/14/25 12:39) Medication List - Last Reconciled 03/14/25 by Jimena Rodriguez MD methadone 25 mg PO BID onabotulinumtoxinA (Botox) 200 units IM ONCE 90 days rizatriptan mg PO sumatriptan succinate 0 mg PO HPI Comments Details: ? 49y/o female comes for treatment of migraines with botox. This is her second session. she had a good response after her first session . she had daily migraines 25-30/month and now she has 3/week and less intense and lasts less than 2 hrs .How long do the migraines last- 1-2 days Prebotox - Intensity of migraine- severe prior to botox ER visits related to migraine 1-2 pre botox Effectiveness of botox from last two treatment(s) How many migraine days since receiving treatment: Change? in intensity of migraine?less Change in frequency of migraine?decreased Change in use of acute medication for migraine?decreased Change in quality of life?improved ER visits related to migraine?0 Explanation for any gaps in treatment- Have at least three months elapsed since last treatment (Last botox date - frequency of injections) yes ??? Most frequent reported adverse reactions following injection of botox for chronic migraine include neck pain (9%), headache(5%), eyelid ptosis(4%), migraine(4%), muscular weakness(4%), musculuskeletal stiffness(4%), bronchitis(3%), injection site pain (3%), musculoskeletal pain(3%), myalgia(3%), facial paresis(2%), HTN(2%) and muscle spasms(2%) were discussed in detail. ??? Botulinum toxin typeA 200units Lot no [id number] expiration May 2027 was diluted with 4 cc of normal saline . ??? Muscles injected- ??? Frontalis 4 sites ??? Procerus 1 site ??? Research And Development Chemist- 2 sites ??? Temporalis- 8 sites ??? Occipitalis- 6 sites ??? Cervical paraspinals- 4 sites ??? Trapezius- 6 sites- 10 units each ??? 5 units each in 31 site ??? Total use- 185units ??? Discarded-15units [facility] Medical History Chronic migraine without aura, intractable, without status migrainosus Anemia Drug abuse Depression Anxiety Family History Father Diabetes PNA (pneumonia) Mother Diabetes Social History Household Members: None Alcohol intake: current Alcohol intake frequency: holidays/special occasions only Patient Tobacco Use Status: Current everyday Tobacco user Current occupational status: employed Current occupation: rt handed Physical Exam Vital Signs: Last Vital Signs Pulse 95 03/14/25 12:37 BP 110/62 03/14/25 12:37 Pulse Ox 94 03/14/25 12:37 Oxygen Delivery Method Room Air 03/14/25 12:37 BMI result Body Mass Index 21.3 Const General: cooperative and tired appearing Nutritional Appearance: average body habitus Orientation/consciousness: patient oriented x3 Neck Neck: Yes full ROM and Yes supple Neuro General: patient oriented x3, gait normal and moves all extremities Cranial nerves: Yes CN's II-XII intact bilaterally Cognition (Neuro): normal cognition Gait exam (Neuro): Normal gait present Motor exam (neuro): 5/5 motor strength present throughout, Pronator motor function not present and no tremor noted Office Procedures Botulinum toxin Injection 31764 - Migraine Procedure code (CPT) selection complete Office Meds onabotulinumtoxinA 200 unit solution for injection Performing Provider: Jimena Rodriguez MD Performing [place] [facility] Administered by: Jimena Rodriguez MD on 03/14/25 13:00 Dose Route Admin Location Dispensed Lot Number Expiration Date [facility] Production Reproduction Manager 185 unit subcut 200 units [id number] ALLERGAN /BOTOX Total Dispensed Waste 200 units 7.5 % Comments: see HPI Assessment & Plan Assessment & Plan (1) Chronic migraine without aura, intractable, without status migrainosus: Code(s): G43.719 - Chronic migraine without aura, intractable, without status migrainosus Category: Medical Plan Patient tolerated the procedure well she will call with any side effects Orders: Orders AMB Botulinum toxin Injection Today G43.719 - Chronic migraine without aura, intractable, without status migrainosus Coding Level of Care Code Est Pt Level 1 (43003) Diagnoses Chronic migraine without aura, intractable, without status migrainosus G43.719 CPT Codes Botox Injection - Botox 3: 74982 - Migraine ([id number])
[2025-03-14 12:37] VITALS: BP 110/62; PULSE 95; O2SAT 94; BMI 21.3
--- OUTSIDE RECORDS SUMMARY | 2025-03-14 13:12 | XMS_ITS | Encounter Summary ---
Author Organization [facility] Address [address] [place] [address] Care Team Providers Care Radiological Engineer Name Role Phone Physician, No Pcp Primary Care Provider Unavaila ble Encounter Details Date Type Department Care Team (Late st Contact Info) Description 09/08/2024 Lab Requisition [facility] - Main Lab [address] [facility] [place] [address] Jacky Voss [address] [place] [phone] Pain in throat Social History Tobacco Use [...] No pathogens isolated. 09/10/2024 10:18 AM EST [facility] Swab Structure of anterior portion of neck / Unknown 09/08/2024 09/08/2024 7:22 PM EST us Jacky Voss LAB MICROBIOLOGY - GENERAL ORDER VERNELL Final Result [facility] [address] [place] [address], documented in this encounter Visit Diagnoses Diagnosis Pain in throat Throat pain documented in this encounter Care Teams Radiological Engineer Relationship Specialty Start Date End Date Physician, No Pcp PCP - General 10/17/24 documented as of this encounter
== END 2025-03-14 12:52 | disposition home or self-care (01) ==
LOC: HO.HSMS 12:25
PROVIDERS: PCP Internal Medicine; Visit Provider Psychiatry & Neurology Neurology
DX: G43.719 Chronic migraine without aura, intractable, without status migrainosus (principal)
CPT/HCPCS: 64615

== ENCOUNTER → 2025-03-14 12:24 | Outpatient (BNVA) | payer OTHER, SELFPAY | PROVIDERS: PCP Internal Medicine; Visit Provider Psychiatry & Neurology Neurology | DX: G43.719 Chronic migraine without aura, intractable, without status migrainosus (principal) | CPT/HCPCS: 64615; 99211; J0585 ==

== ENCOUNTER 2025-06-27 09:57 | Outpatient (AMB) | payer OTHER, SELFPAY ==
[2025-06-27 09:48] VITALS: BP 102/64; PULSE 92; O2SAT 97; BMI 22.0
--- NOTE | 2025-06-27 09:48 | A.OFFVIS_ITS ---
Vital Signs 06/27/25 09:48 Height 5 ft 5 in Weight 132 lb 2 oz BMI 22.0 BP 102/64 Blood Pressure Location Rt brachial Position Sitting Pulse 92 Pulse Source Pulse Oximeter Pulse Oximetry (%) 97 Oxygen Delivery Method Room Air Intake Visit Reasons: R/S 06/20/2025 Intake Note: Botox 200 Grades 9 12 Tutor Required: No Accompanied by: Partner Allergies No Known Allergies Allergy (Verified 06/27/25 09:52) Medication List - Last Reconciled 06/27/25 by Jimena Rodriguez MD methadone 25 mg PO BID onabotulinumtoxinA (Botox) 200 units IM ONCE 90 days sumatriptan succinate 0 mg PO HPI Comments Details: ? 49y/o female comes for treatment of migraines with botox. This is her second session. she had a good response after her first session . she had daily migraines 25-30/month and now she has 3/week and less intense and lasts less than 2 hrs .How long do the migraines last- 1-2 days Prebotox - Intensity of migraine- severe prior to botox ER visits related to migraine 1-2 pre botox Effectiveness of botox from last two treatment(s) How many migraine days since receiving treatment: Change? in intensity of migraine?less Change in frequency of migraine?decreased Change in use of acute medication for migraine?decreased Change in quality of life?improved ER visits related to migraine?0 Explanation for any gaps in treatment- Have at least three months elapsed since last treatment (Last botox date - frequency of injections) yes ??? Most frequent reported adverse reactions following injection of botox for chronic migraine include neck pain (9%), headache(5%), eyelid ptosis(4%), migraine(4%), muscular weakness(4%), musculuskeletal stiffness(4%), bronchitis(3%), injection site pain (3%), musculoskeletal pain(3%), myalgia(3%), facial paresis(2%), HTN(2%) and muscle spasms(2%) were discussed in detail. ??? Botulinum toxin typeA 200units Lot no [id number] expiration October 2027 was diluted with 4 cc of normal saline . ??? Muscles injected- ??? Frontalis 4 sites ??? Procerus 1 site ??? Metal Spraying Machine Operator- 2 sites ??? Temporalis- 8 sites ??? Occipitalis- 6 sites ??? Cervical paraspinals- 4 sites ??? Trapezius- 6 sites- 10 units each ??? 5 units each in 31 site ??? Total use- 185units ??? Discarded-15units [facility] Medical History Chronic migraine without aura, intractable, without status migrainosus Anemia Drug abuse Depression Anxiety Family History Father Diabetes PNA (pneumonia) Mother Diabetes Social History Household Members: None Alcohol intake: current Alcohol intake frequency: holidays/special occasions only Patient Tobacco Use Status: Current everyday Tobacco user Current occupational status: employed Current occupation: rt handed Physical Exam Vital Signs: Last Vital Signs Pulse 92 06/27/25 09:48 BP 102/64 06/27/25 09:48 Pulse Ox 97 06/27/25 09:48 Oxygen Delivery Method Room Air 06/27/25 09:48 BMI result Body Mass Index 22.0 Const General: cooperative and tired appearing Nutritional Appearance: average body habitus Orientation/consciousness: patient oriented x3 Neck Neck: Yes full ROM and Yes supple Neuro General: patient oriented x3, gait normal and moves all extremities Cranial nerves: Yes CN's II-XII intact bilaterally Cognition (Neuro): normal cognition Gait exam (Neuro): Normal gait present Motor exam (neuro): 5/5 motor strength present throughout, Pronator motor function not present and no tremor noted Office Procedures Botulinum toxin Injection 94076 - Migraine Procedure code (CPT) selection complete Office Meds onabotulinumtoxinA 200 unit solution for injection Performing Provider: Jimena Rodriguez MD Performing Location: [facility] Administered by: Jimena Rodriguez MD on 06/27/25 11:23 Dose Route Admin Location Dispensed Lot Number Expiration Date [facility] Student Activities Director 185 unit subcut 200 units [id number] ALLERGAN /BOTOX Total Dispensed Waste 200 units 7.5 % Comments: see hpi Assessment & Plan Assessment & Plan (1) Chronic migraine without aura, intractable, without status migrainosus: Code(s): G43.719 - Chronic migraine without aura, intractable, without status migrainosus Category: Medical Plan Patient tolerated the procedure well she will call with any side effects Orders: Orders AMB Botulinum toxin Injection Today G43.719 - Chronic migraine without aura, intractable, without status migrainosus Coding Level of Care Code Est Pt Level 1 (43290) Diagnoses Chronic migraine without aura, intractable, without status migrainosus G43.719 CPT Codes Botox Injection - Botox 3: 71311 - Migraine ([id number])
--- OUTSIDE RECORDS SUMMARY | 2025-06-27 11:54 | XMS_ITS | Encounter Summary ---
Author Organization [facility] Address [address] [place] [address] Care Team Providers Care Civil Clerk Name Role Phone Physician, No Pcp Primary Care Provider Unavaila ble Encounter Details Date Type Department Care Team (Late Contact Info) Description 09/08/2024 Lab Requisition [facility] - Main Lab [address] [facility] [place] [address] Jacky Voss [address] [place] [phone] Pain in throat Social History Tobacco Use [...] Department Care Team (Late Contact Info) Description 05/21/2026 3:30 PM EDT Office Visit Internal Medicine - [facility] [address] [place], [place] [phone] Melissa Wallace MD [address] [place], [place] documented as of this encounter Procedures Procedure Name Priority Date/Time Associated Diagnosis Comments CULTURE THROAT Routine 09/08/2024 12:00 AM EST Pain in throat documented in this encounter Results * Culture throat (09/08/2024 12:00 AM EST) Culture, Throat No pathogens isolated. 09/10/2024 10:18 AM EST [facility] Swab Structure of anterior region of neck / Unknown 09/08/2024 09/08/2024 7:22 PM EST us Jacky Voss LAB MICROBIOLOGY - GENERAL ORDER VERNELL Final Result [facility] [address] [place] [address], [place] [phone] documented in this encounter Visit Diagnoses Diagnosis Pain in throat Throat pain documented in this encounter Care Teams Civil Clerk Relationship Specialty Start Date End Date Physician, No Pcp PCP - General 10/17/24 documented as of this encounter
--- OUTSIDE RECORDS SUMMARY | 2025-06-27 11:55 | XMS_ITS | Clinical Summary ---
Author Organization [address] [facility] Address [address] [place] [address] Phone Care Team Providers Care Double End Chucking Machine Operator Name Role Phone Physician, No Pcp Primary Care Provider Unavaila ble Allergies Active Allergy Reactions Criticality Noted Date Comments [place] Oil Anaphylaxis High 05/10/2013 Tree Nuts 11/23/2024 Hazelnuts and almonds Medications methadone (DOLOPHINE) 10 mg/5 mL solution Take 50 mL by mouth every 12 hours. Active rizatriptan (MAXALT) 10 mg tablet as needed. 05/25/20 23 Active sertraline (ZOLOFT) 25 mg tablet Take [...] 05/13/2013 Narcotic addiction (CMS/HCC V24, CMS/HCC V28) Surgical History Surgery Date Site/Laterality Comments OTHER SURGICAL HISTORY PROCEDURE: ---- OTHER ----; COMMENT: breast implants Medical History Medical History Date Comments Abrasion of esophagus Family History Relation Name Status Comments Father [...] Sign Reading Time Taken Comments Blood Pressure 111/77 02/10/2025 7:05 PM EDT Pulse 86 02/10/2025 7:05 PM EDT Temperature 36.6 C (97.9 F) 02/10/2025 7:05 PM EDT Respiratory Rate 18 02/10/2025 7:05 PM EDT Oxygen Saturation 100% 02/10/2025 7:05 PM EDT Inhaled Oxygen Concentration - - Weight 54.9 kg (121 lb) 02/10/2025 6:59 PM EDT Height 165.1 cm (5' 5 ) 02/10/2025 6:59 PM EDT Body Mass Index 20.14 02/10/2025 6:59 PM EDT Plan of Treatment Upcoming Encounters Date Type Department Care Team (Late st Contact Info) Description 05/21/2026 3:30 PM EDT Office Visit Internal Medicine - [address] [phone] Melissa Wallace MD [address] [place] [address] Health Maintenance Due Date Last Done Comments Breast Cancer Screening 1975 Colorectal Cancer Screening: Colonoscopy 1975 Pneumococcal Vaccine: Pediat rics (0 to 5 Years) and At-Risk Patients (6 to 49 Years) (1 of 2 - PCV) 11/30/1994 Cervical Cancer Screening: P ap Smear 11/30/1996 DTaP,Tdap,and Td Vaccines (2 - Td or Tdap) 02/04/2017 02/04/2007 Hepatitis B Vaccines (2 of 3 - 19+ 3-dose series) 02/04/2022 01/07/2022 HIV Screening 07/06/2022 Hepatitis C Screening 07/06/2022 Social Influencers of Health Screening 07/06/2022 Depression Screening 08/03/2024 COVID-19 Vaccine (1 - 2024-2 6 season) 2025 Influenza Vaccine (#1) 2025 Cholesterol Screening (Lipid Panel) 09/08/2029 09/08/2024 RSV Immunization Adult Patie nts (1 - 1-dose 75+ series) 11/30/2050 HIB Vaccines Aged Out No longer eligi [...] Procedure Name Priority Date/Time Associated Diagnosis Comments LIPID PANEL WITH REFLEX TO DIRECT LDL Routine 09/08/2024 3:32 PM EST Laboratory tests ordered as part of a complete physical exam (CPE) Iron deficiency Anemia from Last 3 Months or Most Recently Relevant to Health Maintenance Results * (ABNORMAL) Lipid panel with reflex to direct LDL (09/08/2024 3:32 PM EST) Cholesterol 179 0 - 200 mg/dL LAB CHEMISTRY METHOD 09/08/2024 7:[address] [facility] Triglycerides 58 0 - 150 mg/dL LAB CHEMISTRY METHOD 09/08/2024 7:[address] [facility] HDL 65 >=40 mg/dL LAB CHEMISTRY METHOD 09/08/2024 7:47 PM EST [facility] LDL Calculated 102(H) 0 - 100 mg/dL LAB CHEMISTRY METHOD 09/08/2024 7:[address] [facility] VLDL Cholesterol Riky 11.6 mg/dL LAB CHEMISTRY METHOD 09/08/2024 7:[address] [facility] Non HDL Chol. (LDL+VLDL) 114 <145 mg/dL LAB CHEMISTRY METHOD 09/08/2024 7:[address] [facility] Chol/HDL Ratio 2.8 0.0 - 4.4 LAB CHEMISTRY METHOD 09/08/2024 7:47 PM EST [facility] Blood Venous blood specimen / Unknown Venipuncture / Unknown 09/08/2024 3:32 PM EST 09/08/2024 3:32 PM EST us Jacky Voss LAB BLOOD ORDERABLES Final Resul t [facility] [address] [place] [address], from Last 3 Months or Most Recently Relevant to Health Maintenance Insurance [facility] [employer] Care Teams Double End Chucking Machine Operator Relationship Specialty Start Date End Date Physician, No Pcp PCP - General 10/17/24
== END 2025-06-27 10:09 | disposition home or self-care (01) ==
PROVIDERS: PCP Internal Medicine; Visit Provider Psychiatry & Neurology Neurology
DX: G43.719 Chronic migraine without aura, intractable, without status migrainosus (principal)
CPT/HCPCS: 64615

== ENCOUNTER → 2025-06-27 09:57 | Outpatient (BNVA) | payer OTHER, SELFPAY | PROVIDERS: PCP Internal Medicine; Visit Provider Psychiatry & Neurology Neurology | DX: G43.719 Chronic migraine without aura, intractable, without status migrainosus (principal) | CPT/HCPCS: 64615; 99211; J0585 ==